=== PATIENT | male | born 1965 ===

== ENCOUNTER 2018-11-05 06:20 | Inpatient (IN) | payer OTHER ==
[~2018-11-05 06:20] MED LIST: VANCOMYCIN 1,000 MG VIAL (RESTRICTED TO ID ONLY) IVPB ONE
[2018-11-05] MEDS ORDERED: BUPIVACAINE LIPOSOME/PF (EXPAREL) 266 MG/20 ML VIAL ONE ×2 (07:17→07:38)
[2018-11-05] MEDS ORDERED: HEPARIN NA (PORCINE) 5,000 UNITS/ML 1ML VIAL ONE (07:17)
[2018-11-05] MEDS ORDERED: THROMBIN (BOVINE) 5,000 UNIT VIAL TP ONE ×2 (07:17→09:50)
[2018-11-05] MEDS ORDERED: fentaNYL CITRATE 250 MCG/5 ML VIAL ONE ×2 (07:36→11:22)
[2018-11-05] MEDS ORDERED: EPHEDRINE SULFATE/0.9% NACL/PF 50 MG/10 ML SYRINGE NR ONE ×2 (07:36→13:37)
[2018-11-05] MEDS ORDERED: ROCURONIUM BROMIDE 50 MG/5 ML SYRINGE ONE ×2 (07:37→13:37)
[2018-11-05] MEDS ORDERED: MIDAZOLAM HCL 2 MG/2 ML SINGLE DOSE VIAL ONE ×3 (07:37→07:40)
[2018-11-05] MEDS ORDERED: PROPOFOL 20 ML ONE ×24 (07:37→13:53)
[2018-11-05] MEDS ORDERED: BACITRACIN 15 GM TUBE TOPICAL OINTMENT ONE (07:38)
[2018-11-05] MEDS ORDERED: ceFAZolin SODIUM 1 GM VIAL IVPB ONE ×4 (08:31→17:59)
[2018-11-05] MEDS ORDERED: VANCOMYCIN 1,000 MG VIAL (RESTRICTED TO ID ONLY) IVPB ONE (08:35)
[2018-11-05] MEDS ORDERED: oxyCODONE HCL 5 MG TABLET PO PRN ×2 (09:20)
[2018-11-05] MEDS ORDERED: ONDANSETRON 4 MG/2 ML VIAL IVPUSH PRN ×2 (09:20→15:00)
[2018-11-05] MEDS ORDERED: LACTATED RINGERS SOLUTION 1,000 ML IV SCH (09:30)
[2018-11-05] MEDS ORDERED: HYDROmorphone *PCA* 10MG/50ML DISP.SYRIN PCA SCH ×2 (09:30→16:48)
[2018-11-05] MEDS ORDERED: TRANEXAMIC ACID 1000 MG/10 ML VIAL ONE ×2 (09:31→13:29)
[2018-11-05] MEDS ORDERED: NEOSTIGMINE METHYLSULFATE 0.5 MG/1 ML - 10 ML MDV ONE (09:46)
[2018-11-05] MEDS ORDERED: oxyCODONE HCL 10 MG SUSTAINED ACTING TABLET PO SCH (10:00)
[2018-11-05] MEDS ORDERED: ACETAMINOPHEN 1000 MG/100 ML VIAL (NON FORMULARY) IVPB ONE ×3 (12:00→20:26)
--- NOTE | 2018-11-05 13:13 | PN ---
Progress Note (short form) - Note Progress Note: 52M s/p removal of hardware L4-L5, inspection of fusion mass, L3-S1 laminectomies, L3-L4 & L4-L5 PLIF, L3-S1 posterior instrumented spinal fusion POD #0. -Admit to ICU post-op. -Pain control: NO NSAID's; patient received pre-op TLIP block w/Exparel; OK to use MANAGER RENTAL if needed; transition to oral analgesia post-op. -DVT PPx: -Mechanical only: MAX's, SCD's. -Chemical: None. -Incentive spirometry q15 min. -NPO until flatus. -Parsons care; d/c when ambulating. -Post-op Ancef x 3 doses. -PT/OT/Rehab, OOB. -WBAT B/L LE. -No bending, lifting (>5 lbs), or twisting for 9-12 months. -Care per ICU & medical hospitalist teams. -Discharge planning: Miles eason; f/u 7-10 days after rehab discharge at [facility] office; call for appointment; . -Will follow. Alfredo Palma MD (Orthopaedic Surgery).
--- NOTE | 2018-11-05 13:20 | OP ---
Operative Note - Note: Operative Date: 11/05/18 Pre-Operative Diagnosis: 1. Adjecent level disease lumbar spine. 2. 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 3. L3-L4, L4-L5, L5-S1 lumbar stenosis with neurogenic claudication. 4. Multi-level axial instability lumbar spine. SEVERITY OF ILLNESS: 4. Operation: 1. Removal of hardware L4-L5. 2. Inspection of fusion mass. 3. L3 ( partial), L4, L5, S1 laminectomies. 4. L3-L4, L4-L5, L5-S1 posterior lumbar interbody fusion with posterolateral arthrodesis. 5. L3-S1 posterior instrumentation. 6. Bone autograft. 7. Bone allograft. 8. Bone marrow aspirate concentrate autograft. 9. Complex wound closure (25cm). 10. Durotomy repair Findings: 1. Severe epidural fibrosis with significant adherence of L4 and L5 exiting nerve roots 2. Broken screws bilateral L5 3. Calcified L4-L5 disc Implants: Cages: RTI Fortilink Tetrafuse. L3-L4 - 11mm (right approach). L4- L5 - 12mm (left approach). Screws: Precision Spine. L3 - 6.5x45mm x 2. L4 - 6.5x45mm x 1, 7.5x40mm x 1. S1 - 7.5x35mm x 1, [id number] x 1. 1 x Cross-Link Post-Operative Diagnosis: Same as Pre-op Surgeon: Alfredo Palma Warehouse Distribution Manager: Abdulaziz Palma Anesthesiologist/GRAPHIC ART DESIGNER: Juni Ferguson Anesthesia: General, Local (TLIP) Specimens Removed: L3-L4, L4-L5 discs. L4-L5 hardware Estimated Blood Loss (mls): 1,750 Drains & Tubes with Location: 1 x superficial HemoVac Blood Volume Replaced (mls): 875 (Cell Saver) Fluid Volume Replaced (mls): 3,000 (Crystalloid) Operative Report Dictated: Yes
[2018-11-05] MEDS ORDERED: DEXAMETHASONE SOD PHOSPHATE 4 MG/1 ML VIAL ONE (13:29)
[2018-11-05] MEDS ORDERED: ONDANSETRON 4 MG/2 ML VIAL ONE (13:29)
[2018-11-05] MEDS ORDERED: LIDOCAINE HCL 2% JELLY (5 ML/TUBE) ONE (13:29)
[2018-11-05] MEDS ORDERED: LIDOCAINE HCL/PF 2% SDV 5ML VIAL ONE (13:29)
[2018-11-05] MEDS ORDERED: SUCCINYLCHOLINE CHLORIDE 200 MG/10 ML SYRINGE ONE (13:50)
[2018-11-05] MEDS ORDERED: HYDROmorphone *PCA* 10MG/50ML DISP.SYRIN ONE (15:52)
[2018-11-05] MEDS ORDERED: HYDROmorphone *PCA* 10MG/50ML DISP.SYRIN PCA ONE (16:15)
[2018-11-05] MEDS ORDERED: ACETAMINOPHEN INJECTION 200 ML IVPB ONE (16:59)
[2018-11-05] MEDS ORDERED: ceFAZolin SODIUM 1 GM VIAL ONE ×2 (17:24→17:34)
--- NOTE | 2018-11-05 18:19 | HP ---
CHIEF COMPLAINT: Sharp pain radiating to the Legs PCP: None on file HISTORY OF PRESENT ILLNESS: 52 yo male with no PMH s/p removal of hardware L4-L5, inspection of fusion mass , L3-S1 laminectomies, L3-L4& L4-L5 PLIF, L3-S1 posterior instrumented spinal fusion because of L4-L5 PLIF and sharp pain grading 6/10 radiating down the legs. Pt was unable to provide further history at the time Recent Travel: none PAST MEDICAL HISTORY: None PAST SURGICAL HISTORY: None Social History: Smoking:denies Alcohol: denies Drugs: denies Family History: None Allergies No Known Drug Allergies Allergy (Verified 11/05/18 07:00) HOME MEDICATIONS: Home Medications Medication Instructions Recorded Ibuprofen [Motrin -] 800 mg PO PRN PRN 11/02/18 Multivitamin [One-Daily 1 each PO DAILY 11/02/18 Multi-Vitamin] Oxymorphone HCl [Oxymorphone HCl 40 mg PO TID 11/02/18 ER] Benazepril HCl 5 mg PO DAILY 11/05/18 REVIEW OF SYSTEMS CONSTITUTIONAL: Absent: fever, chills, diaphoresis, generalized weakness, malaise, loss of appetite, weight change HEENT: Absent: rhinorrhea, nasal congestion, throat pain, throat swelling, difficulty swallowing, mouth swelling, ear pain, eye pain, visual changes CARDIOVASCULAR: Absent: chest pain, syncope, palpitations, irregular heart rate, lightheadedness , peripheral edema RESPIRATORY: Absent: cough, shortness of breath, dyspnea with exertion, orthopnea, wheezing, stridor, hemoptysis GASTROINTESTINAL: Absent: abdominal pain, abdominal distension, nausea, vomiting, diarrhea, constipation, melena, hematochezia GENITOURINARY: Absent: dysuria, frequency, urgency, hesitancy, hematuria, flank pain, genital pain MUSCULOSKELETAL: Absent: myalgia, arthralgia, joint swelling, back pain, neck pain SKIN: Absent: rash, itching, pallor HEMATOLOGIC/IMMUNOLOGIC: Absent: easy bleeding, easy bruising, lymphadenopathy, frequent infections ENDOCRINE: Absent: unexplained weight gain, unexplained weight loss, heat intolerance, cold intolerance NEUROLOGIC: Absent: headache, focal weakness or paresthesias, dizziness, unsteady gait, seizure, mental status changes, bladder or bowel incontinence PSYCHIATRIC: Absent: anxiety, depression, suicidal or homicidal ideation, hallucinations. PHYSICAL EXAMINATION Vital Signs - 24 hr 11/05/18 11/05/18 11/05/18 06:55 06:56 15:16 Temperature 98.0 F 99.7 F H Pulse Rate 71 110 H Respiratory 20 10 Rate Blood Pressure 141/96 126/67 O2 Sat by Pulse 97 96 Oximetry (%) 11/05/18 11/05/18 11/05/18 15:30 15:45 16:00 Temperature Pulse Rate 105 H 95 H 94 H Respiratory 21 H 19 18 Rate Blood Pressure 134/71 127/83 116/72 O2 Sat by Pulse 99 99 99 Oximetry (%) 11/05/18 11/05/18 11/05/18 16:15 16:30 16:45 Temperature Pulse Rate 105 H 93 H 98 H Respiratory 18 18 21 H Rate Blood Pressure 119/83 110/61 137/77 O2 Sat by Pulse 98 99 98 Oximetry (%) 11/05/18 11/05/18 11/05/18 17:00 17:15 17:30 Temperature Pulse Rate 95 H 82 85 Respiratory 20 12 15 Rate Blood Pressure 133/89 125/98 130/95 O2 Sat by Pulse 86 L 95 95 Oximetry (%) 11/05/18 17:45 Temperature Pulse Rate 98 H Respiratory 15 Rate Blood Pressure 143/88 O2 Sat by Pulse 95 Oximetry (%) GENERAL: patient is asleep postoperatively. HEAD: Normal with no signs of trauma. LUNGS: Breath sounds equal, clear to auscultation bilaterally. No wheezes, and no crackles. No accessory muscle use. HEART: Regular rate and rhythm, normal S1 and S2 without murmur, rub or gallop. ABDOMEN: Soft, nontender, not distended, normoactive bowel sounds, no guarding, no rebound, no masses. No hepatomegaly or splenomegaly. MUSCULOSKELETAL: not examined s/p spinal surgery UPPER EXTREMITIES: 2+ pulses, warm, well-perfused. No cyanosis. No clubbing. No peripheral edema. LOWER EXTREMITIES: 2+ pulses, warm, well-perfused. No calf tenderness. No peripheral edema. NEUROLOGICAL: Normal speech. sensation intact in all extremities. Laboratory Results - last 24 hr 11/05/18 11/05/18 08:40 08:43 Blood Type O POSITIVE O POSITIVE Antibody Screen Negative ASSESSMENT/PLAN: 52 yo male with no PMH s/p removal of hardware L4-L5, inspection of fusion mass , L3-S1 laminectomies, L3-L4& L4-L5 PLIF, L3-S1 posterior instrumented spinal fusion because of L4-L5 PLIF and sharp pain grading 6/10 radiating down the legs Pain control NO NSAIDS FILM LIBRARIAN if needed, then oral analgesia post op DVT Mechanical only TEDs, SCDs NO ANTICOAGULATIONS ICS q15 min NPO until flatus Monitor Problem List - Problem (1) Radiculopathy due to disorder of intervertebral disc of lumbar spine Code(s): M51.16 - INTERVERTEBRAL DISC DISORDERS W RADICULOPATHY, LUMBAR REGION Visit type - Emergency Visit Emergency Visit: No - New Patient This patient is new to me today: Yes Date on this admission: 11/05/18 - Critical Care Critical Care patient: Yes Total Critical Care Time (in minutes): 35 Critical Care Statement: The care of this patient involved high complexity decision making to prevent further life threatening deterioration of the patient 's condition and/or to evaluate & treat vital organ system(s) failure or risk of failure. ATTENDING PHYSICIAN STATEMENT I saw and evaluated the patient. I reviewed the resident's note and discussed the case with the resident. I agree with the resident's findings and plan as documented. SUBJECTIVE: OBJECTIVE: ASSESSMENT AND PLAN:
--- NOTE | 2018-11-05 19:08 | PN ---
Teaching Attending Note Name of Resident: Meghan Shelley ATTENDING PHYSICIAN STATEMENT I saw and evaluated the patient. I reviewed the resident's note and discussed the case with the resident. I agree with the resident's findings and plan as documented. SUBJECTIVE: cc: s/p spinal sx. HPI: 52 y/o man with h/o, HTN, lower back pain s/p L4-S1 spinal fusion , and continued back pain who presented for spinal sx. he is now POD 0 , still in PACU and under the effect of sedation he denies pain, denies SOB, falls asleep and does not participate much in conversation. Preop labs and history reviewed. MEd list also reviewed. OBJECTIVE: NAD, lethargic, arousable, answers briefly and then falls asleep. HEENT: dry MM. round equal pupils, bruise on L tip of the tongue. subconjunctival edema. no facial droop. round pupils, reactive to light. CV: RRR, no MRG Lungs: CATB anteriorly Abd: soft , No BS, NT, obese, ND. Ext : No edema or erythema. DP 2+ . no fungal infection among toes. Neuro: limited. round equal pupils. tongue at mid line. no facial droop. nl sensation in upper and lower extremities. can wiggle toes and lifts arms. reflexes 1+ knee jerk and biceps b/ l ASSESSMENT AND PLAN: 52 y/o man with h/o lower back pain s/p L4-s1 spinal fusion , and continued back pain who presented for spinal sx 1- POD 0 after L spine procedure. 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 - Labs in am 2- h/o HTN: - lisinopril in place of benazapril stephanie here 3- DVT px: SCDs for now
[2018-11-05] MEDS: ACETAMINOPHEN 1000 MG/100 ML VIAL (NON FORMULARY) IVPB SCH ×2 (19:23→23:25)
[2018-11-05] MEDS: LACTATED RINGERS SOLUTION 1,000 ML IV SCH (19:23)
[2018-11-05] MEDS: ceFAZolin 2 GRAM PREMIX BAG IVPB SCH ×2 (19:28→23:56)
[2018-11-05] MEDS: HYDROmorphone *PCA* 10MG/50ML DISP.SYRIN PCA SCH (19:28)
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
[2018-11-05] MEDS: MUPIROCIN 2% TOPICAL OINTMENT FOR DECOLONIZATION NS SCH (22:42)
[2018-11-05] MEDS: CHLORHEXIDINE GLUCONATE 4% CLEANSER FOR DECOLONIZATION TP SCH (22:42)
[2018-11-06] MEDS: ceFAZolin 2 GRAM PREMIX BAG IVPB SCH (05:41)
[2018-11-06] MEDS: HYDROmorphone *PCA* 10MG/50ML DISP.SYRIN PCA SCH ×2 (05:44→15:10)
[2018-11-06] MEDS: LACTATED RINGERS SOLUTION 1,000 ML IV SCH ×2 (05:46→10:30)
[2018-11-06 06:35] LABS: HEMATOCRIT 37.9 % (35.4-49); HEMOGLOBIN 12.7 GM/dL (11.7-16.9); MCHC 33.4 g/dl (32.0-35.9); MEAN CELL VOLUME 92.9 fl (80-96); MEAN PLT VOLUME 6.7 fl (7.5-11.1); PLATELET COUNT 193 K/MM3 (134-434); RBC 4.08 M/mm3 (4.00-5.60); RDW 14.8 % (11.9-15.9); WHITE BLOOD COUNT 16.4 K/mm3 (4.0-10.0)
[2018-11-06] MEDS: ACETAMINOPHEN 1000 MG/100 ML VIAL (NON FORMULARY) IVPB SCH (06:36)
[2018-11-06 06:50] LABS: BLOOD UREA NITROGEN 9.9 mg/dL (7-18); CALCIUM 7.1 mg/dL (8.5-10.1); CREATININE 2.2 mg/dL (0.55-1.3); MAGNESIUM 1.2 mg/dL (1.8-2.4); PHOSPHOROUS 3.1 mg/dL (2.5-4.9); POTASSIUM 3.8 mmol/L (3.5-5.1)
[2018-11-06] MEDS ORDERED: MAGNESIUM SULF 50% (8.12 MEQ/2 ML-1 GM VIAL) IVPB ONE (08:15)
[2018-11-06] MEDS ORDERED: LACTATED RINGERS SOLUTION 1000 ML INFUS.BAG IV ONE (08:33)
[2018-11-06] MEDS ORDERED: LACTATED RINGERS SOLUTION 1,000 ML IV ONE (08:45)
[2018-11-06] MEDS ORDERED: LIDOCAINE HCL 2% JELLY (30 ML/TUBE) TP ONE (09:00)
--- NOTE | 2018-11-06 09:40 | OP ---
Date of Operation: 11/05/2018 Pre-Operative Diagnosis: 1. L3-L4, L4-L5, L5-S1 lumbar spondylotic radiculopathy. 2. L3-S1 spinal stenosis with neurogenic claudication. 3. Prior L4-L5 posterior decompression and instrumented lumbar fusion. 4. Adjacent level disease lumbar spine. 5. Chronic low back pain. 6. Segmental axial instability lumbar spine. Post-Operative Diagnosis: 1. L3-L4, L4-L5, L5-S1 lumbar spondylotic radiculopathy. 2. L3-S1 spinal stenosis with neurogenic claudication. 3. Prior L4-L5 posterior decompression and instrumented lumbar fusion. 4. Adjacent level disease lumbar spine. 5. Chronic low back pain. 6. Segmental axial instability lumbar spine. 7. Broken hardware lumbar spine. Procedure Performed: 1. Removal of prior L4-L5 instrumentation. (94349) 2. Inspection of fusion mass. (81714) 3. L3, L4, L5, S1 laminectomies and facetectomies. (50942-50, 32252-25 x 3) 4. L3-L4, L4-L5 posterolateral arthrodesis & posterior lumbar interbody fusion (PLIF). (60781, 59457) 5. L3-L4, L4-L5 insertion biomechanical device. (55400 x 2) 6. L3, L4, S1 posterior instrumentation. (68094-47-70) 7. Morselized bone autograft. (02842) 8. Morselized bone allograft. (19395) 9. Bone marrow aspiration for bone grafting. (75089) 10. Complex wound closure, 4 layers, 25cm. (85880 x 4) 11. Durotomy repair Surgeon: Alfredo Palma M.D. Occupational Therapy Department Chair: Abdulaziz Palma M.D. Anesthesiologist: Juni Ferguson M.D. Anesthesia: General, Local (TLIP block). Position: Prone. Incision: Midline. Specimens Removed: L4-L5 hardware, L3-L4 & L4-L5 discs. Drains: None. Estimated Blood Loss: 1,750cc. Intravenous Fluid: 3,000cc crystalloid. Transfusions: 875cc Cell Saver. Complications: None. Bacteriology: None. Closure: No. 1 Vicryl, 2-0 Biosyn absorbable sutures. Indications: The patient was indicated for the above listed surgical procedure due to progressive neurological and functional decline that limits his mobility and furthermore his ability to attend to his activities of daily living. The patient was identified in the holding area by his armband. A long discussion was held with the patient regarding the risks, benefits, and alternatives of the above-listed procedure. The risks include, but are not limited to: Pain, bleeding, infection, damage to surrounding structures (including nerves, blood vessels, skin, ligaments, tendons, and bone), wound complications, failure of hardware/implants/reduction , need for further surgery, blood clots, myocardial infarction, cerebrovascular injury, pulmonary embolism, anesthesia complications, limp, numbness, paresthesias, loss of function, and . Benefits may include reduction of: back pain, radiculopathy, neurogenic claudication, and improved overall mobility and function. Alternatives include no surgery. All questions were answered. The patient understood and agreed to the procedure. Informed consent was obtained, witnessed, and verified. The patient's lumbar spine was marked. The patient was then assessed by the anesthesia team who proceeded to administer a bilateral imaging-guided TLIP blocks to facilitate post-operative pain management. The patient was then taken to the operating room after being seen by the anesthesia and nursing staff. Procedure: The patient was brought into the operating room, where anesthesia was then administered. This included 2g IV Ancef, 1g IV Vancomycin, and 1g IV tranexamic acid (TXA). A time-out was done led by , the attending surgeon. An indwelling Parsons catheter was successfully inserted by the nursing team. The intra-operative neuromonitoring team provided prepositioning baseline motor and sensory readings. The patient was then safely placed in a prone position with all bony prominences well-padded on a [facility] spine table with strict attention paid to maintenance of sagittal vertical alignment. Retroversion of the pelvis was avoided by ensuring that the hips were extended. This also ensured appropriate lumbar lordosis. The arms were placed on well-padded arm boards and maintained with standard forward flexion, abduction, and external rotation of the shoulders , and flexion of the elbows. Special attention was given to the safe positioning of the cervical spine. The patients eyes, and belly were all free. The table was placed in 6 degrees of reverse Trendelenburg position to avoid ophthalmic vein congestion. Post-positional motor and sensory readings confirmed no change. A C-arm fluoroscopy unit was positioned perpendicularly to the table and maintained at the level of the upper thoracic spine, except when needed. The skin was prepped in standard, sterile fashion using betadine prep & scrub, wiped off with alcohol, and DuraPrep applied. Standard window draping was utilized, and this included draping of the C-arm. Appropriate pre-operative imaging, including lumbar spine x-rays and MRI, were available throughout the case for intraoperative evaluation. At this time, a review of the patients plain film lumbar spine x-rays led to the determination the previous surgery was performed at the L4-L5 levels. This was determined due to the presence of 4 lumbar vertebrae and sacralization of the 5th lumbar vertebra. A time-out was repeated, and the case began. The previous, curved midline skin incision was utilized and extended proximally from the tip of the spinous process of L1 to the tip of the spinous process of S2. Using electrocautery, the dissection was carried down through subcutaneous fat and then through the midline of the lumbodorsal fascia down to the tips of the spinous processes. A subperiosteal dissection was performed using a combination of unipolar electrocautery and Arenas elevation. This was carried down the spinous process, over the laminae, across the facet joints, and out over the tips of the transverse processes from L3 to the ala of the sacrum. In this dissection, the capsules of the L2-L3 joints were preserved bilaterally. The previously placed L4-L5 hardware was exposed bilaterally. The L3-L4, L4-L5, and L5-S1 joint capsules were pathologically hypertrophic. They were ablated using electrocautery and resected with rongeurs. The posterolateral dissection was performed with attention to hemostasis by utilizing both unipolar as well as bipolar electrocautery. Extensive scar tissue and fibrosis was encountered throughout the dissection, as evidence of previous lumbar spinal surgery. The posterolateral space was packed with Ray-Abner sponges. A rongeur was used to grasp the L5 spinous process and demonstrate the mobility of the L5-S1 segment. This confirmed the location of the last mobile segment. The rongeur was used to grasp the L4 spinous process and demonstrate the mobility of the L4-L5 segment, thus completing the inspection of the L4-L5 fusion mass. The L4-L5 hardware was then removed and both of the L5 screws were noted to be broken, thus accounting for the mobility across the L4-L5 segment. The screw tulips were removed with the broken pedicle screws left in situ. Bilateral laminectomies were performed at L3, L4, L5, and S1 utilizing Kerrison rongeur upcuts combined with Leksell rongeurs. All harvested bone was saved, freed of fibrous tissue, and morselized with a bone mill. Next, an osteotome was utilized to bilaterally longitudinally split the pars interarticularis and the inferior facets of L3, L4, and L5. The osteotomized bone was imploded towards the thecal sac, which was protected with cottonoid patties, and removed with either a Leksell rongeur or a Kerrison ronguer. Upon removal of all osteotomized bone, we gained clear and easy access to the superior facets of L4, L5, and S1, where tight recess stenosis was appreciated. The exiting L3, L4, L5, & S1 nerve roots were identified. Extensive epineural fibrosis diffusely from L3-S1, particularly at L4 and L5 bilaterally. Stenosis, fibrotic scar tissue was meticulously dissected off the neural elements, and a 1.5cm incidental durotomy of the thecal sac occurred due to the extent of adhesion formation. The durotomy was successfully repaired using 4-0 Nurolon suture. A watertight closure was achieved, as confirmed by multiple anesthesiologist- controlled Valsalva maneuvers held at 40mmHg. This was confirmed at several future time points in the case. The medial edge of the superior facet was resected on each side using Kerrison rongeurs. This further freed the theca and the exiting nerve roots at each level. Each foramen from L3-S1 was inspected utilizing an angled ball-tipped probe and proved to be generously capacious in accommodating the unobstructed exit of the nerve root at that level. The crowding of the convoluted ligamentum flavum and posterior facet joint capsules contributed to the recess stenosis. These structures were excised using Kerrison upcuts, thus fully completing the decompression. All retractors were relaxed and removed. A Jamshidi needle was delivered into the left posterior ileum through the same surgical incision. Via this, 120 mL of bone marrow was aspirated and spun down to isolate a mix of osteoprogenitor and hematopoietic cells. Retractors were inserted once again. The following was performed at L3-L4: The theca was gently mobilized from right to left using a nerve root retractor. In order to do this, we ensured that each nerve root was completely free in its neural foramen as previously described. With the intervertebral disc clearly visualized, large epidural veins were cauterized using bipolar electrocautery. The disc was approached from the right side and using a #11-blade, an elliptical annulotomy was performed. Willy were passed into the disc at each level. The disc was morselized with rotation of the willy, and then extricated with pituitary rongeurs and saved for lab evaluation. The end plates were freed of all soft tissues using a serrated curette. Milled bone autograft was packed into the interbody space, thus completing an anterior arthrodesis of the intervertebral space. An [id number] RTI Fortilink Tetrafuse spacer, that was packed with autograft bone, was inserted into the prepared intervertebral space. The cage was placed in a Press-Fit type manner where the willy were one size under the actual size of the spacer placed as outlined above. An interference fit of the cage assured as we relied on ligamentotaxis for fixation. No dural problems were encountered, and the dura appeared healthy throughout the procedure following the previous dural repair. At this point, the neuromonitoring revealed no complications. The following was performed at L4-L5: The theca was gently mobilized from left to right using a nerve root retractor. In order to do this, we ensured that each nerve root was completely free in its neural foramen as previously described. With the intervertebral disc clearly visualized, large epidural veins were cauterized using bipolar electrocautery. The disc was approached from the left side and using a #11-blade, an elliptical annulotomy was performed. Willy were passed into the disc at each level. The disc was morselized with rotation of the willy, and then extricated with pituitary rongeurs and saved for lab evaluation. The end plates were freed of all soft tissues using a serrated curette. Milled bone autograft was packed into the interbody space, thus completing an anterior arthrodesis of the intervertebral space. An [id number] RTI Fortilink Tetrafuse spacer, that was packed with autograft bone, was inserted into the prepared intervertebral space. The cage was placed in a Press-Fit type manner where the willy were one size under the actual size of the spacer placed as outlined above. An interference fit of the cage assured as we relied on ligamentotaxis for fixation. No dural problems were encountered, and the dura appeared healthy throughout the procedure following the previous dural repair. At this point, the neuromonitoring revealed no complications. Pedicle screws were then seated bilaterally at L3, L4, & S1 utilizing standard anatomical guidelines: IE the intersection of the horizontal axis of the transverse process with the longitudinal axis of the inferior facet at each level. Utilizing lateral fluoroscopic x-ray, a 4.5mm pneumatic drill was passed via the pedicle at each level, into the corresponding vertebral body. Imaging allowed us to ensure that the drill screw was delivered along the undersurface of each endplate. This ensured fixation into the best quality bone. Each pedicle was palpated with a ball-tipped feeler. No breech of anterior, medial, lateral, caudal or cranial bone bed was noted. Precision Spine Reform screws were inserted bilaterally at L3, L4, & S1. Each screw was reevaluated with lateral and anteroposterior fluoroscopy as well as intraoperative neuromonitoring. No preparation or instrumentation occurred at L5 due to the presence of broken screws. All intraoperative neuromonitoring readings were at or above the safe passage of 10 mA. The L3, L4, L5 and S1 pedicles were inspected and palpated using an angled ball- tipped probe. There was no evidence of screw breach involving any of the pedicles. Next, two rods were inserted and fixed into the screw heads with the appropriate screw caps. A torque-limiting device completed the fixation of each cap into each screw head. A single crosslink was utilized. Next, the muscle was gently retracted off the intertransverse plane. All packing sponges were removed. Milled autologous bone with allograft expansion was combined with the bone marrow aspirate concentrate and used for the posterolateral arthrodesis along the intertransverse plane from L3 to S1. Prior to this bone grafting, the recipient bone bed was denuded of all soft tissue. No burring was necessary due to healthy bleeding of each bony surface, including the posterior surface of the transverse processes and the lateral surface of the pars interarticularis at each level. Throughout the case, the wound was irrigated with normal saline solution to keep the exposed soft tissues hydrated. The retractors were released every 15 to 20 minutes to enable adequate blood flow to the paraspinal muscles. These muscles were gently massaged upon release of the retractors to further facilitate blood flow. At the end of the procedure, fragmented and compromised paraspinal muscle was superficially debrided. The anesthesiologist then performed a final Valsalva maneuver up to 40mmHg. There was no evidence of dural defect, cerebrospinal fluid leak, or uncontrollable bleeding. The durotomy repair was augmented with SurgiCel and DuraSeal. Closure: The lumbodorsal fascia overlying the paraspinal musculature was closed in the midline using #1 vicryl sutures in simple interrupted fashion. A 1/8 HemoVac drain was placed in the plane superficial to the fascia, exiting adjacent to the proximal apex of the incision. The wound was repeatedly thoroughly irrigated with normal saline solution. The subcutaneous tissues were closed using #1 Vicryl sutures. The skin was closed using a running 2-0 Biosyn absorbable suture. This completed a complex, 4-layered wound closure of approximately 25cm. The skin was then painted with benzoin and Steri-Strips were applied perpendicular to the incision. A Primapore adhesive Telfa island dressing was applied over the Steri-Strips and a sterile, compressive dressing was applied using 4x4 gauze pads. The skin was painted with DuraPrep. The wound was then sealed with adhesive Ioban. Final AP & lateral fluoroscopic analysis revealed L3-L4 and L4-L5 L5-S1 PLIF cages and L3-S1 instrumentation that appeared intact & place. The exception being the broken L5 pedicle screws. The L3-L4 and L4-L5 disc heights were reconstituted with visibly patent neuroforaminae. There was no fluoroscopic evidence of retained sponges or needles. The sponge and needle counts were correct at the end of the case and I, the attending surgeon, was present and scrubbed throughout the case. The patient was transferred to a hospital bed. All neural monitoring leads were removed. The patient was then transferred to the recovery room in stable condition, as per the anesthesia team, having tolerated the procedure well. Overall comment: Operation went extremely well with no concerning complications. All appropriate goals were achieved in the execution of this operative event. MD BEVERLY Cisse/[id number] MTDD
[2018-11-06] MEDS ORDERED: LISINOPRIL 5 MG TABLET (FP) PO SCH (10:00)
[2018-11-06] MEDS ORDERED: HYDROmorphone *PCA* 10MG/50ML DISP.SYRIN PCA SCH (10:03)
[2018-11-06] MEDS ORDERED: DEXAMETHASONE SOD PHOSPHATE 4 MG/1 ML VIAL IVPUSH SCH ×2 (10:30→15:00)
[2018-11-06] MEDS: MUPIROCIN 2% TOPICAL OINTMENT FOR DECOLONIZATION NS SCH ×2 (12:13→21:24)
--- NOTE | 2018-11-06 12:50 | PN ---
Teaching Attending Note Name of Resident: Stephanie Camacho ATTENDING PHYSICIAN STATEMENT I saw and evaluated the patient. I reviewed the resident's note and discussed the case with the resident. I agree with the resident's findings and plan as documented. SUBJECTIVE: no fever or chilsl. No CARRIZALES . has a lot of lower back pain. feels difficulty in his throat. has no SOB. has weakness in his legs . feels discomfort in his supapubic area. problems with his holliday last night . no flatus OBJECTIVE: NAD,awake, coopertive HEENT: dry MM. round equal pupils, bruise on L tip of the tongue. no facial droop. round pupils, reactive to light. uvula is edematous. and enlarged. + mild stridor CV: RRR, no MRG Lungs: CATB anteriorly and sides Abd: soft , No BS, TTP in supra pubic area , obese, ND. Ext: No edema or erythema. DP 2+. tenderness withpalpation to thighs Neuro of LE: RLE: hip flexion 2/5, ankle dorsiflexionand plantar flexion 4/5. LLE: hip flexion 3/5, knee flexion /extension 4/5 , ankle dosriflesion and plantar flexion 4/5 . Reflexes 1+ knee jerk b/l . nl sensation to light touch on legs and feet ASSESSMENT AND PLAN: 52 y/o man with h/o lower back pain s/p L4-s1 spinal fusion , and continued back pain who presented for spinal sx 1- POD 1 after L spine procedure. - Add continuous infusion to the LEGUILLON DEBEADER. cont 0.2 mg q 6min for boluses - NPO until after flatus - NO NSAIDs - cont holliday - lweukocysotis is probably stress reaction to sx. 2- Stridor and edematous uvula: ? due to intubation VS Angioedema from ACEI. - start decadron 4 mg q 6h. - probably can do prednisone tomorrow - dc lisinopril ( and will not resume his home enalapril at dc ) - monitor air ways 3- BELA: ? due to rhabdo, VS ATN from transient hypotension during sx, or holliday not draining over night. - increase IVF to 200 for now then decrease - cont o make sure holliday drains all the time - US if possible. - follow CPK 4- h/o HTN: - dc lisinopril due to above . will not resume enalapril at dc - start low dos enorvac 5- DVT px: SCDs for now
[2018-11-06 13:00] LABS: EPI CELLS 1.5 /HPF (0-5/HPF); HYALINE CASTS 7 /lpf (0-8); PH,URINE 6.5 (5.0-8.0); URINE APPEARANCE CLOUDY; URINE BILIRUBIN NEGATIVE (NEGATIVE); URINE COLOR ORANGE; URINE GLUCOSE (UA) NEGATIVE (NEGATIVE); URINE KETONE NEGATIVE (NEGATIVE); URINE LEUK ESTERASE TRACE (NEGATIVE); URINE NITRITE NEGATIVE (NEGATIVE); URINE PROTEIN TRACE (NEGATIVE); URINE RBC 448 /hpf (0-4); URINE UROBILINOGEN 0.2 mg/dL (0.2-1.0); URINE WBC 4 /hpf (0-5)
--- NOTE | 2018-11-06 13:10 | PN ---
Teaching Attending Note Name of Resident: Steven Quintanilla ATTENDING PHYSICIAN STATEMENT I saw and evaluated the patient. I reviewed the resident's note and discussed the case with the resident. I agree with the resident's findings and plan as documented. SUBJECTIVE: Patient seen and examined in the ICU. Awake and alert. (+) Sore throat that developed overnight. No CP or SOB. 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 Intake & Output 11/03/18 11/04/18 11/05/18 11/06/18 23:59 23:59 23:59 23:59 Intake Total 4575 1650 Output Total 2750 1900 Balance 1825 -250 Last Vital Signs Temp Pulse Resp BP Pulse Ox 98.2 F 112 H 20 158/100 98 11/06/18 06:00 11/06/18 12:14 11/06/18 12:14 11/06/18 12:14 11/06/18 12:14 Active Medications Chlorhexidine Gluconate (Hibiclens For Decolonization -) 1 applic TP HS PRANAY Last Admin: 11/05/18 22:42 Dose: 1 applic Dexamethasone Sodium Phosphate (Decadron Injection -) 4 mg IVPUSH Q6H-IV PRANAY Last Admin: 11/06/18 12:17 Dose: 4 mg Hydromorphone HCl (Hydromorphone 10 Mg/50 Ml-Ns) 10 mg JEWELLERY DESIGNER JEWELLERY DESIGNER [facility]; Protocol Stop: 11/12/18 17:41 Last Admin: 11/06/18 12:14 Dose: 10 mg Lactated Ringer's (Lactated Ringers Solution) 1,000 mls @ 200 mls/hr IV ASDIR PRANAY Last Admin: 11/06/18 10:30 Dose: 200 mls/hr Mupirocin (Bactroban Ointment (For Decolonization) -) 1 applic NS BID PRANAY Stop: 11/10/18 21:59 Last Admin: 11/06/18 12:13 Dose: 1 applic Ondansetron HCl (Zofran Injection) 4 mg IVPUSH Q6H PRN PRN Reason: NAUSEA AND/OR VOMITING GENERAL: Awake and alert, mildly uncomfortable due to pain HEAD: Normal with no signs of trauma. EYES: EOMI Sclera Clear EARS, NOSE, THROAT: Mallampatti 4, swelling of the uvula LUNGS: Clear HEART: RRR S1S2 ABDOMEN: Obese NDNT UPPER EXTREMITIES: 2+ pulses, warm, well-perfused. No cyanosis. No clubbing. LOWER EXTREMITIES: 2+ pulses, warm, well-perfused. No calf tenderness. No peripheral edema. NEUROLOGICAL: Non-focal SKIN: Warm, dry, normal turgor, no rashes or lesions noted. Laboratory Results - last 24 hr 11/06/18 11/06/18 06:10 06:10 WBC 16.4 H RBC 4.08 Hgb 12.7 Hct 37.9 MCV 92.9 MCH 31.0 MCHC 33.4 RDW 14.8 Plt Count 193 MPV 6.7 L Sodium 135 L Potassium 3.8 Chloride 95 L Carbon Dioxide 23 Anion Gap 16 BUN 9.9 Creatinine 2.2 H Est GFR (CKD-EPI)AfAm 37.95 Est GFR (CKD-EPI)NonAf 32.75 Random Glucose 242 H Calcium 7.1 L Phosphorus 3.1 Magnesium 1.2 L Creatine Kinase 2271 H Creatine Kinase Index 0.7 CK-MB (CK-2) 18.0 H ASSESSMENT/PLAN: POD # 1: removal of hardware L4-L5, inspection of fusion mass, L3-S1 laminectomies, L3-L4 & L4-L5 PLIF, L3-S1 posterior instrumented spinal fusion. HTN Suspected Swelling of the Uvula Clinical history consistent with OSAS Elevated CPK: R/O Rhabdomyolysis Noted patient was started on Decadron O2 as needed Pain control Incentive Spirometry No NSAIDS NPO until Flatus PT OOB to chair Hold KASSANDRA I for now Floor when cleared by surgery Dr Castañeda
[2018-11-06] MEDS ORDERED: HYDROmorphone HCl 2 MG/ML VIAL IVPUSH ONE (13:19)
--- NOTE | 2018-11-06 14:22 | PN ---
Physical Exam: SUBJECTIVE: Patient seen and examined at bedside this AM. Pt in alot of pain, pain meds adjusted by anesthesia addressed in my plan. Pt not passing flatus yet , clinical post-op ileus as expected, will keep NPO until passes flatus. OBJECTIVE: Vital Signs Period Temp Pulse Resp BP Sys/Barrientos Pulse Ox Last 24 Hr 97.9 F-99.7 F 75-112 10-22 110-170/59-115 0-99 GENERAL: The patient is awake, alert, and fully oriented, in alot of pain. HEAD: Normal with no signs of trauma. NECK: pain upon neck ROM, supple. Uvular hypertrophy on exam. LUNGS: Breath sounds equal, clear to auscultation bilaterally, pain upon inspiration, no accessory muscle use. HEART: Regular rate and rhythm, S1, S2 without murmur, rub or gallop. ABDOMEN: Soft, distended, tender abdomen, with hypoactive bowel sounds, increased guarding EXTREMITIES: 2+ pulses, warm, well-perfused, no edema. NEUROLOGICAL: Cranial nerves II through XII grossly intact. Normal speech, gait not observed. PSYCH: Normal mood, normal affect. SKIN: Warm, dry, no rashes or lesions noted Laboratory Results - last 24 hr 11/06/18 11/06/18 11/06/18 06:10 06:10 11:30 WBC 16.4 H RBC 4.08 Hgb 12.7 Hct 37.9 MCV 92.9 MCH 31.0 MCHC 33.4 RDW 14.8 Plt Count 193 MPV 6.7 L Sodium 135 L Potassium 3.8 Chloride 95 L Carbon Dioxide 23 Anion Gap 16 BUN 9.9 Creatinine 2.2 H Est GFR (CKD-EPI)AfAm 37.95 Est GFR (CKD-EPI)NonAf 32.75 Random Glucose 242 H Calcium 7.1 L Phosphorus 3.1 Magnesium 1.2 L Creatine Kinase 2271 H Creatine Kinase Index 0.7 CK-MB (CK-2) 18.0 H Urine Color [place] Urine Appearance Cloudy Urine pH 6.5 Ur Specific [place] 1.025 Urine Protein Trace Urine Glucose (UA) Negative Urine Ketones Negative Urine Blood 3+ H Urine Nitrite Negative Urine Bilirubin Negative Urine Urobilinogen 0.2 Ur Leukocyte Esterase Trace Urine WBC (Auto) 4 Urine RBC (Auto) 448 Urine Casts (Auto) 7 U Epithel Cells (Auto) 1.5 Urine Bacteria (Auto) 1.0 Active Medications Generic Name Dose Route Start Last Admin Trade Name Freq PRN Reason Stop Dose Admin Chlorhexidine Gluconate 1 applic 11/05/18 22:00 11/05/18 22:42 Hibiclens For Decolonization - TP 1 applic HS PRANAY Administration Hydromorphone HCl 10 mg 11/06/18 10:03 11/06/18 12:14 Hydromorphone 10 Mg/50 Ml-Ns [employer] ASSEMBLY 11/12/18 17:41 10 mg [employer]OR [employer]SEMBLY PRANAY Administration Protocol Lactated Ringer's 1,000 mls @ 200 mls/hr 11/06/18 10:06 11/06/18 10:30 Lactated Ringers Solution IV 200 mls/hr ASDIR PRANAY Administration Mupirocin 1 applic 11/05/18 22:00 11/06/18 12:13 Bactroban Ointment (For Decolonization) - NS 11/10/18 21:59 1 applic BID PRANAY Administration Ondansetron HCl 4 mg 11/05/18 15:00 Zofran Injection IVPUSH Q6H PRN NAUSEA AND/OR VOMITING ASSESSMENT/PLAN: Pt is a 52 y/o M with a past medical history of hypertension who presented to [facility] for removal of hardware L4-L5, inspection of fusion mass, L3-S1 laminectomies, L3-L4 & L4-L5 PLIF, L3-S1 posterior instrumented spinal fusion. NEUROLOGY: - Neurologically intact ENT-> uvular hypertrophy post op - likely 2/2 prone intubation vs KASSANDRA induced angiodema - pt was prone for several hrs during procedure and intubated that combination may be cause of this. - 4mg decadron IV was d/c by surgery. MSK:-> S/p removal of hardware L4-L5, inspection of fusion mass, L3-S1 laminectomies, L3-L4 & L4-L5 PLIF, L3-S1 posterior instrumented spinal fusion. -POD #1. -Pain control with INS[employer]OR W[employer] ASSEMBLY solely is not sufficing given pt uses oxymorphone 40 tid at home for pain mgmt, recently cut back to 20mg bid. Pt currently has a 10/10 pain level so will switch to oxycontin 40 BID PO and INS[employer]SEM[employer]Y dilaudid for breakthrough only. -Ofirimev PRN for Fever and/or Pain. -Zofran PRN for Nausea -Incentive Spirometry is essential for pt to improve, will help prevent atelectasis. -Mechanical Prophylaxis with TEDs -NPO until Flatus is passed. -PT consult - no lifting of objects greater than 5 lbs for 9-12 months. Cardiology -> Uncontrolled HTN likely 2/2 Pain -Will hold Lisinopril at this time given poor renal ftn and possible cause of uvular hypertrophy on exam is due to aceI induced angioedema. Renal-> BELA vs BELA on CKD vs rhabdomyolysis - renal sono showing b/l nephrolithiasis and no hydronephrosis - b/l nephrolithiasis will need uro follow up once better clinically. - continue holding KASSANDRA inhibitor - CK elevated - continuing fluid resuscitation 200cc/hr LR. #DVT ppx: SCDs #FEN - LR @ 200cc/hr - Monitor Electrolytes - NPO until Flatus Dispo: We will continue to follow the patient. Thank you for this consultative opportunity. Visit type - Emergency Visit Emergency Visit: Yes ED Registration Date: 11/05/18 Care time: The patient presented to the Emergency Department on the above date and was hospitalized for further evaluation of their emergent condition. - New Patient This patient is new to me today: Yes Date on this admission: 11/06/18 - Critical Care Critical Care patient: Yes Total Critical Care Time (in minutes): 35 Critical Care Statement: The care of this patient involved high complexity decision making to prevent further life threatening deterioration of the patient 's condition and/or to evaluate & treat vital organ system(s) failure or risk of failure. - Discharge Referral Referred to [facility] Med P.C.: No
--- NOTE | 2018-11-06 14:30 | PN ---
Progress Note (short form) - Note Progress Note: Called by ICU to evaluate pt for post operative pain. Pt is POD 1 L3-S1 fusion under GA-ETT with dilaudid GTA. Pt takes oxymorphone 40 tid at home, recently cut back to 20mg bid. Pt currently reports 10/10 pain. Will start oxycontin 40mg po bid. Will continue dilaudid IV GTA breakthrough only. Uvula swelling noted. Pt on decadron. Will follow.
[2018-11-06] MEDS ORDERED: DEXAMETHASONE SOD PHOSPHATE 20 MG/5 ML VIAL IVPB SCH (14:45)
[2018-11-06] MEDS ORDERED: HYDROmorphone *PCA* 10MG/50ML DISP.SYRIN ONE (15:03)
[2018-11-06] MEDS ORDERED: oxyCODONE HCL 40 MG SUSTAINED ACTING TABLET PO ONE (15:16)
--- NOTE | 2018-11-06 15:49 | PN ---
Physical Exam: SUBJECTIVE: Patient seen and examined. Pt was in acute distress due to significant pain. Pt explained that he had to use EMERGENCY COMMUNICATIONS DISPATCHER pump multiple time with minimal relief of pain. OBJECTIVE: Vital Signs Period Temp Pulse Resp BP Sys/Barrientos Pulse Ox Last 24 Hr 97.9 F-98.4 F 75-113 10-22 110-170/59-115 0-100 GENERAL: The patient is awake, alert, and fully oriented, in moderate distress. HEAD: Normal with no signs of trauma. EYES: PERRL, extraocular movements intact, sclera anicteric, conjunctiva clear. No ptosis. ENT: oropharynx clear without exudates but hypertrophic and edematous Uvula 2/ 2 prone intubation, moist mucous membranes. LUNGS: Breath sounds equal, clear to auscultation bilaterally, no wheezes, no crackles, no accessory muscle use. HEART: Regular rate and rhythm, S1, S2 without murmur, rub or gallop. ABDOMEN: Soft, nontender, nondistended, normoactive bowel sounds, no guarding, no rebound, no hepatosplenomegaly, no masses. EXTREMITIES: 2+ pulses, warm, well-perfused, no edema. NEUROLOGICAL: Cranial nerves II through XII grossly intact. Normal speech, gait not observed, motor 5/5 sensation intact in all extremities. Laboratory Results - last 24 hr 11/06/18 11/06/18 11/06/18 06:10 06:10 11:30 WBC 16.4 H RBC 4.08 Hgb 12.7 Hct 37.9 MCV 92.9 MCH 31.0 MCHC 33.4 RDW 14.8 Plt Count 193 MPV 6.7 L Sodium 135 L Potassium 3.8 Chloride 95 L Carbon Dioxide 23 Anion Gap 16 BUN 9.9 Creatinine 2.2 H Est GFR (CKD-EPI)AfAm 37.95 Est GFR (CKD-EPI)NonAf 32.75 Random Glucose 242 H Calcium 7.1 L Phosphorus 3.1 Magnesium 1.2 L Creatine Kinase 2271 H Creatine Kinase Index 0.7 CK-MB (CK-2) 18.0 H Urine Color [place] Urine Appearance Cloudy Urine pH 6.5 Ur Specific [place] 1.025 Urine Protein Trace Urine Glucose (UA) Negative Urine Ketones Negative Urine Blood 3+ H Urine Nitrite Negative Urine Bilirubin Negative Urine Urobilinogen 0.2 Ur Leukocyte Esterase Trace Urine WBC (Auto) 4 Urine RBC (Auto) 448 Urine Casts (Auto) 7 U Epithel Cells (Auto) 1.5 Urine Bacteria (Auto) 1.0 Active Medications Generic Name Dose Route Start Last Admin Trade Name Hermila PRN Reason Stop Dose Admin Chlorhexidine Gluconate 1 applic 11/05/18 22:00 11/05/18 22:42 Hibiclens For Decolonization - TP 1 applic HS PRANAY Administration Hydromorphone HCl 10 mg 11/06/18 14:30 11/06/18 15:10 Hydromorphone 10 Mg/50 Ml-Ns EMERGENCY COMMUNICATIONS DISPATCHER 11/13/18 14:26 10 mg EMERGENCY COMMUNICATIONS DISPATCHER PRANAY Administration Protocol Lactated Ringer's 1,000 mls @ 200 mls/hr 11/06/18 10:06 11/06/18 10:30 Lactated Ringers Solution IV 200 mls/hr ASDIR PRANAY Administration Mupirocin 1 applic 11/05/18 22:00 11/06/18 12:13 Bactroban Ointment (For Decolonization) - NS 11/10/18 21:59 1 applic BID PRANAY Administration Ondansetron HCl 4 mg 11/05/18 15:00 Zofran Injection IVPUSH Q6H PRN NAUSEA AND/OR VOMITING Oxycodone HCl 40 mg 11/06/18 22:00 Oxycontin - PO BID PRANAY ASSESSMENT/PLAN: 52 yo male with no PMH s/p removal of hardware L4-L5, inspection of fusion mass , L3-S1 laminectomies, L3-L4& L4-L5 PLIF, L3-S1 posterior instrumented spinal fusion because of L4-L5 PLIF and sharp pain grading 6/10 radiating down the legs Post OP day 1 Neuro intact patient continues to have significant pain despite EMERGENCY COMMUNICATIONS DISPATCHER pump. Per anesthesia recommendations, pain regimen changed to Oxycodone 40mg BID and Dilaudid 10mg EMERGENCY COMMUNICATIONS DISPATCHER /NO NSAIDS Zofran for nausea PRN Stridor and uvula hypertrophy decadron to prevent airway compromise? BELA 2/2 rhabdomyolysis CPK 2271 CK MB 18 increased fluids for a couple hours than maintained at 200 ml Abdominal pain, suprapubic pt is voiding adequately 950 collected in urine bag, after unclipping he had more urine collected in bag Xylocaine given to reduce catheter discomfort HTN lisinopril 5mg DVT Mechanical only TEDs, SCDs NO ANTICOAGULATIONS ICS q15 min NPO until flatus Problem List - Problems (1) Radiculopathy due to disorder of intervertebral disc of lumbar spine Code(s): M51.16 - INTERVERTEBRAL DISC DISORDERS W RADICULOPATHY, LUMBAR REGION Visit type - Emergency Visit Emergency Visit: No - New Patient This patient is new to me today: No - Critical Care Critical Care patient: Yes Total Critical Care Time (in minutes): 35 Critical Care Statement: The care of this patient involved high complexity decision making to prevent further life threatening deterioration of the patient 's condition and/or to evaluate & treat vital organ system(s) failure or risk of failure. - Discharge Referral Referred to [facility] Med P.C.: No ATTENDING PHYSICIAN STATEMENT I saw and evaluated the patient. I reviewed the resident's note and discussed the case with the resident. I agree with the resident's findings and plan as documented. SUBJECTIVE: OBJECTIVE: ASSESSMENT AND PLAN:
[2018-11-06] MEDS: oxyCODONE HCL 40 MG SUSTAINED ACTING TABLET PO SCH (21:23)
[2018-11-06] MEDS: FAMOTIDINE 20 MG/50 ML IVPB 20 MG/50 ML MG IVPB SCH (21:23)
[2018-11-06] MEDS: CHLORHEXIDINE GLUCONATE 4% CLEANSER FOR DECOLONIZATION TP SCH (21:24)
[2018-11-07] MEDS: LACTATED RINGERS SOLUTION 1,000 ML IV SCH ×2 (00:36→07:49)
[2018-11-07] MEDS: HYDROmorphone *PCA* 10MG/50ML DISP.SYRIN PCA SCH ×2 (05:51→18:13)
[2018-11-07 05:54] LABS: BASO % 0.6 % (0-2.0); EOS % 0.1 % (0-4.5); HEMATOCRIT 45.7 % (35.4-49); HEMOGLOBIN 15.5 GM/dL (11.7-16.9); LYMPH % 9.4 % (8-40); MCH 31.1 pg (25.7-33.7); MEAN CELL VOLUME 91.5 fl (80-96); MEAN PLT VOLUME 6.8 fl (7.5-11.1); MONO % 8.8 % (3.8-10.2); NEUT % 81.1 % (42.8-82.8); PLATELET COUNT 221 K/MM3 (134-434); RBC 4.99 M/mm3 (4.00-5.60); RDW 14.9 % (11.9-15.9); WHITE BLOOD COUNT 21.8 K/mm3 (4.0-10.0)
[2018-11-07 06:24] LABS: BLOOD UREA NITROGEN 12.8 mg/dL (7-18); CREATININE 1.2 mg/dL (0.55-1.3); PHOSPHOROUS 3.3 mg/dL (2.5-4.9)
[2018-11-07 06:25] LABS: POTASSIUM 4.3 mmol/L (3.5-5.1)
[2018-11-07] MEDS ORDERED: OXYMETAZOLINE 0.05% NASAL SOLUTION 15 ML BOTTLE NS PRN (08:00)
[2018-11-07] MEDS ORDERED: LABETALOL HCL 5 MG/1 ML (100MG/20 ML VIAL) IVPUSH PRN (08:42)
[2018-11-07] MEDS: oxyCODONE HCL 40 MG SUSTAINED ACTING TABLET PO SCH ×2 (09:18→21:48)
[2018-11-07] MEDS: FAMOTIDINE 20 MG/50 ML IVPB 20 MG/50 ML MG IVPB SCH ×2 (09:18→21:48)
[2018-11-07] MEDS: MUPIROCIN 2% TOPICAL OINTMENT FOR DECOLONIZATION NS SCH ×2 (09:43→21:49)
--- NOTE | 2018-11-07 09:44 | PN ---
Teaching Attending Note Name of Resident: Meghan Shelley ATTENDING PHYSICIAN STATEMENT I saw and evaluated the patient. I reviewed the resident's note and discussed the case with the resident. I agree with the resident's findings and plan as documented. SUBJECTIVE: c/o having l-spine pain s/p POD #2 , seen in ICU OBJECTIVE: Vital Signs Temperature 99.5 F 11/07/18 06:00 Pulse Rate 96 H 11/07/18 08:00 Respiratory Rate 16 11/07/18 08:00 Blood Pressure 153/104 H 11/07/18 08:00 O2 Sat by Pulse Oximetry (%) 100 11/07/18 08:00 GENERAL: The patient is awake, alert, and fully oriented, in no acute distress. HEAD: Normal with no signs of trauma. EYES: PERRL, extraocular movements intact, sclera anicteric, conjunctiva clear. ENT: Ears normal, oropharynx clear without exudates, moist mucous membranes. NECK: Trachea midline, full range of motion, supple. LUNGS: Breath sounds equal, clear to auscultation bilaterally, no wheezes, no crackles, no accessory muscle use. HEART: Regular rate and rhythm, S1, S2 without murmur, rub or gallop. ABDOMEN: Soft, NT, nondistended, normoactive bowel sounds, no guarding, no rebound, no hepatosplenomegaly, no masses. EXTREMITIES: 2+ pulses, warm, well-perfused, no edema. NEUROLOGICAL: CN 2-12 grossly intact, rest of exam per dr Palma PSYCH: Normal mood, normal affect. SKIN: Warm, dry, normal turgor, no rashes or lesions noted CBCD WBC 21.8 K/mm3 (4.0-10.0) H 11/07/18 05:35 RBC 4.99 M/mm3 (4.00-5.60) 11/07/18 05:35 Hgb 15.5 GM/dL (11.7-16.9) 11/07/18 05:35 Hct 45.7 % (35.4-49) D 11/07/18 05:35 MCV 91.5 fl (80-96) 11/07/18 05:35 MCHC 34.0 g/dl (32.0-35.9) 11/07/18 05:35 RDW 14.9 % (11.9-15.9) 11/07/18 05:35 Plt Count 221 K/MM3 (134-434) 11/07/18 05:35 MPV 6.8 fl (7.5-11.1) L 11/07/18 05:35 CMP Sodium 137 mmol/L (136-145) 11/07/18 05:35 Potassium 4.3 mmol/L (3.5-5.1) 11/07/18 05:35 Chloride 98 mmol/L (98-107) 11/07/18 05:35 Carbon Dioxide 29 mmol/L (21-32) 11/07/18 05:35 Anion Gap 10 MMOL/L (8-16) 11/07/18 05:35 BUN 12.8 mg/dL (7-18) 11/07/18 05:35 Creatinine 1.2 mg/dL (0.55-1.3) 11/07/18 05:35 Random Glucose 106 mg/dL (74-106) 11/07/18 05:35 Calcium 9.0 mg/dL (8.5-10.1) 11/07/18 05:35 CARDIAC ENZYMES Creatine Kinase 2271 U/L (26-308) H 11/06/18 06:10 Current Medications Generic Name Dose Route Start Last Admin Trade Name Zackq PRN Reason Stop Dose Admin Chlorhexidine Gluconate 1 applic 11/05/18 22:00 11/06/18 21:24 Hibiclens For Decolonization - TP 1 applic HS PRANAY Administration Diphenhydramine HCl 25 mg 11/06/18 19:30 11/07/18 07:54 Benadryl Injection - IVPB 11/08/18 01:31 25 mg Q6H PRANAY Administration Hydromorphone HCl 10 mg 11/06/18 14:30 11/07/18 05:51 Hydromorphone 10 Mg/50 Ml-Ns [employer] 11/13/18 14:26 10 mg [employer] PRANAY Administration Protocol Famotidine/Sodium Chloride 20 mg in 50 mls @ 100 mls/hr 11/06/18 22:00 09:18 Pepcid 20 Mg Premixed Ivpb - IVPB 100 mls/hr BID PRANAY Administration Lactated Ringer's 1,000 mls @ 100 mls/hr 11/07/18 07:49 11/07/18 07:49 Lactated Ringers Solution IV 100 mls/hr ASDIR PRANAY Administration Labetalol HCl 10 mg 11/07/18 08:42 Normodyne Injection - IVPUSH Q6H PRN HYPERTENSION Mupirocin 1 applic 11/05/18 22:00 11/07/18 09:43 Bactroban Ointment (For Decolonization) - NS 11/10/18 21:59 1 applic BID PRANAY Administration Ondansetron HCl 4 mg 11/05/18 15:00 Zofran Injection IVPUSH Q6H PRN NAUSEA AND/OR VOMITING Oxycodone HCl 40 mg 11/06/18 22:00 11/07/18 09:18 Oxycontin - PO 40 mg BID PRANAY Administration Oxymetazoline HCl 2 spray 11/07/18 08:00 11/07/18 09:22 Afrin - NS 2 sprays BID PRN Administration NASAL CONGESTION Home Medications Medication Instructions Recorded Ibuprofen [Motrin -] 800 mg PO PRN PRN 11/02/18 Multivitamin [One-Daily 1 each PO DAILY 11/02/18 Multi-Vitamin] Oxymorphone HCl [Oxymorphone HCl 40 mg PO TID 11/02/18 ER] ASSESSMENT AND PLAN: Patient is a 52 y/o man with h/o lower back pain s/p L4-s1 spinal fusion, and continued to have back pain who presented for spinal sx # POD#2 s/p removal of hardware L4-L5, inspection of fusion mass, L3-S1 laminectomies, L3-L4 & L4-L5 PLIF, L3-S1 posterior instrumented spinal fusion, on [employer] pump as per ortho and anesthesia , NPO until after flatus , NO NSAIDs , no aspirin, cont holliday #Acute leukocytosis is probably stress reaction to sx s/p steroid , will monitor # s/p Stridor and edematous uvula: due to intubation , will monitor # BELA: improved 2.2-->1.2 improved s/p IVF # h/o HTN: on Labetolol continue start low dose norvac and anny-I on discharge DVT px: SCDs for now, NO AC as per ortho
--- NOTE | 2018-11-07 10:44 | PN ---
Physical Exam: SUBJECTIVE: Patient seen and examined. Pt felt significantly better today. He endorsed improvement of his pain from 10/10 to 7/10 today. His throat also feel better but just dry sensation. OBJECTIVE: Vital Signs Period Temp Pulse Resp BP Sys/Barrientos Pulse Ox Last 24 Hr 98.4 F-99.5 F 96-119 11-22 135-175/97-115 93-100 GENERAL: The patient is awake, alert, and fully oriented, in no acute distress. HEAD: Normal with no signs of trauma. EYES: PERRL, extraocular movements intact, sclera anicteric, conjunctiva clear. No ptosis. ENT: Ears normal, nares patent, oropharynx clear without exudates, moist mucous membranes. NECK: Trachea midline, full range of motion, supple. LUNGS: Breath sounds equal, clear to auscultation bilaterally, no wheezes, no crackles, no accessory muscle use. HEART: Regular rate and rhythm, S1, S2 without murmur, rub or gallop. ABDOMEN: Soft, nontender, nondistended, normoactive bowel sounds, no guarding, no rebound, no hepatosplenomegaly, no masses. EXTREMITIES: 2+ pulses, warm, well-perfused, no edema. NEUROLOGICAL: Cranial nerves II through XII grossly intact. Normal speech, gait not observed. PSYCH: Normal mood, normal affect. SKIN: Warm, dry, normal turgor, no rashes or lesions noted Laboratory Results - last 24 hr 11/06/18 11/07/18 11/07/18 11:30 05:35 05:35 WBC 21.8 H RBC 4.99 Hgb 15.5 Hct 45.7 D MCV 91.5 MCH 31.1 MCHC 34.0 RDW 14.9 Plt Count 221 MPV 6.8 L Absolute Neuts (auto) 17.6 H Neutrophils % 81.1 Lymphocytes % 9.4 Monocytes % 8.8 Eosinophils % 0.1 Basophils % 0.6 Nucleated RBC % 0 Sodium 137 Potassium 4.3 Chloride 98 Carbon Dioxide 29 Anion Gap 10 BUN 12.8 Creatinine 1.2 Est GFR (CKD-EPI)AfAm 78.98 Est GFR (CKD-EPI)NonAf 68.14 Random Glucose 106 Calcium 9.0 Phosphorus 3.3 Magnesium 2.0 Urine Color [place] Urine Appearance Cloudy Urine pH 6.5 Ur Specific [place] 1.025 Urine Protein Trace Urine Glucose (UA) Negative Urine Ketones Negative Urine Blood 3+ H Urine Nitrite Negative Urine Bilirubin Negative Urine Urobilinogen 0.2 Ur Leukocyte Esterase Trace Urine WBC (Auto) 4 Urine RBC (Auto) 448 Urine Casts (Auto) 7 U Epithel Cells (Auto) 1.5 Urine Bacteria (Auto) 1.0 Active Medications Generic Name Dose Route Start Last Admin Trade Name Freq PRN Reason Stop Dose Admin Chlorhexidine Gluconate 1 applic 11/05/18 22:00 11/06/18 21:24 Hibiclens For Decolonization - TP 1 applic HS PRANAY Administration Diphenhydramine HCl 25 mg 11/06/18 19:30 11/07/18 07:54 Benadryl Injection - IVPB 11/08/18 01:31 25 mg Q6H PRANAY Administration Hydromorphone HCl 10 mg 11/06/18 14:30 11/07/18 05:51 Hydromorphone 10 Mg/50 Ml-Ns [employer] OFFICE MANAGER 11/13/18 14:26 10 mg H[employer] OFFICE MANAGER PRANAY Administration Protocol Famotidine/Sodium Chloride 20 mg in 50 mls @ 100 mls/hr 11/06/18 22:00 09:18 Pepcid 20 Mg Premixed Ivpb - IVPB 100 mls/hr BID PRANAY Administration Lactated Ringer's 1,000 mls @ 100 mls/hr 11/07/18 07:49 11/07/18 07:49 Lactated Ringers Solution IV 100 mls/hr ASDIR PRANAY Administration Labetalol HCl 10 mg 11/07/18 08:42 Normodyne Injection - IVPUSH Q6H PRN HYPERTENSION Mupirocin 1 applic 11/05/18 22:00 11/07/18 09:43 Bactroban Ointment (For Decolonization) - NS 11/10/18 21:59 1 applic BID PRANAY Administration Ondansetron HCl 4 mg 11/05/18 15:00 Zofran Injection IVPUSH Q6H PRN NAUSEA AND/OR VOMITING Oxycodone HCl 40 mg 11/06/18 22:00 11/07/18 09:18 Oxycontin - PO 40 mg BID PRANAY Administration Oxymetazoline HCl 2 spray 11/07/18 08:00 11/07/18 09:22 Afrin - NS 2 sprays BID PRN Administration NASAL CONGESTION ASSESSMENT/PLAN: 52 yo male with no PMH s/p removal of hardware L4-L5, inspection of fusion mass , L3-S1 laminectomies, L3-L4& L4-L5 PLIF, L3-S1 posterior instrumented spinal fusion because of L4-L5 PLIF and sharp pain grading 6/10 radiating down the legs Post OP day 2 Neuro intact patient pain improved to 7/10 from 10/10. Per anesthesia recommendations, pain regimen changed to Oxycodone 40mg BID and Dilaudid 10mg HOTEL FRONT OFFICE MANAGER /NO NSAIDS Zofran for nausea PRN NPO until flatus Throat soarness improved compared to yesterday, Uvula swelling reduced BELA 2/2 rhabdomyolysis CPK 2271 11/06/18 CK MB 18 11/06/18 fluids maintained at 200 ml Creatinine down to 1.2 from 2.2 repeat CK UA was orange and cloudy, 3+ blood, RBC 448, cast 7 with pending Urine EOS WBC increased to 21.8 from 16.4 HTN lisinopril 5mg DVT Mechanical only TEDs, SCDs NO ANTICOAGULATIONS ICS q15 min Problem List - Problems (1) Radiculopathy due to disorder of intervertebral disc of lumbar spine Code(s): M51.16 - INTERVERTEBRAL DISC DISORDERS W RADICULOPATHY, LUMBAR REGION Visit type - Emergency Visit Emergency Visit: No - New Patient This patient is new to me today: No - Critical Care Critical Care patient: Yes Total Critical Care Time (in minutes): 35 Critical Care Statement: The care of this patient involved high complexity decision making to prevent further life threatening deterioration of the patient 's condition and/or to evaluate & treat vital organ system(s) failure or risk of failure. ATTENDING PHYSICIAN STATEMENT I saw and evaluated the patient. I reviewed the resident's note and discussed the case with the resident. I agree with the resident's findings and plan as documented. SUBJECTIVE: OBJECTIVE: ASSESSMENT AND PLAN:
--- NOTE | 2018-11-07 11:12 | PN ---
Teaching Attending Note Name of Resident: Viktoria Narvaez ATTENDING PHYSICIAN STATEMENT I saw and evaluated the patient. I reviewed the resident's note and discussed the case with the resident. I agree with the resident's findings and plan as documented. SUBJECTIVE: Pt seen and examined in the ICU. Pain relatively controlled. Parsons d/c'd. No flatus, no nausea/vomiting. c/o back pain radiating to lower abdomen. OBJECTIVE: Vital Signs Period Temp Pulse Resp BP Sys/Barrientos Pulse Ox Last 24 Hr 98.4 F-99.5 F 96-119 11-22 135-175/97-115 93-100 Intake & Output 11/04/18 11/05/18 11/06/18 11/07/18 23:59 23:59 23:59 23:59 Intake Total 4575 4240 2530 Output Total 2750 5650 1100 Balance 1825 -1410 1430 Weight 101.695 kg Gen: NAD at rest Heart: RRR Lung: decreased breath sounds at the bases Abd: softly distended Ext: no edema CBC, BMP 11/07/18 05:35 11/07/18 05:35 Active Medications Chlorhexidine Gluconate (Hibiclens For Decolonization -) 1 applic TP HS PRANAY Last Admin: 11/06/18 21:24 Dose: 1 applic Diphenhydramine HCl (Benadryl Injection -) 25 mg IVPB Q6H PRANAY Stop: 11/08/18 01:31 Last Admin: 11/07/18 07:54 Dose: 25 mg Hydromorphone HCl (Hydromorphone 10 Mg/50 Ml-Ns) 10 mg HOME CARE GIVER HOME CARE GIVER PRANAY; Protocol Stop: 11/13/18 14:26 Last Admin: 11/07/18 05:51 Dose: 10 mg Famotidine/Sodium Chloride (Pepcid 20 Mg Premixed Ivpb -) 20 mg in 50 mls @ 100 mls/hr IVPB BID PRANAY Last Admin: 11/07/18 09:18 Dose: 100 mls/hr Lactated Ringer's (Lactated Ringers Solution) 1,000 mls @ 100 mls/hr IV ASDIR PRANAY Last Admin: 11/07/18 07:49 Dose: 100 mls/hr Labetalol HCl (Normodyne Injection -) 10 mg IVPUSH Q6H PRN PRN Reason: HYPERTENSION Mupirocin (Bactroban Ointment (For Decolonization) -) 1 applic NS BID [facility] Stop: 11/10/18 21:59 Last Admin: 11/07/18 09:43 Dose: 1 applic Ondansetron HCl (Zofran Injection) 4 mg IVPUSH Q6H PRN PRN Reason: NAUSEA AND/OR VOMITING Oxycodone HCl (Oxycontin -) 40 mg PO BID [facility] Last Admin: 11/07/18 09:18 Dose: 40 mg Oxymetazoline HCl (Afrin -) 2 spray NS BID PRN PRN Reason: NASAL CONGESTION Last Admin: 11/07/18 09:22 Dose: 2 sprays ASSESSMENT AND PLAN: Lumbar Spinal Stenosis with Radiculopathy and Neurogenic Claudication s/p JACQUELYN L4-L5/L3-S1 PLIF/Instrumentation/Durotomy Repair - pain control - incentive spirometry - monitor for return of bowel function - rehab/PT - DVT prophylaxis - disposition per surgery
[2018-11-07 13:30] LABS: ANISOCYTOSIS 1+; MACROCYTOSIS 1+; PLATELET ESTIMATE NORMAL
--- NOTE | 2018-11-07 14:29 | PN ---
Progress Note (short form) - Note Progress Note: 52M s/p removal of hardware L4-L5, inspection of fusion mass, L3-S1 laminectomies, L3-L4 & L4-L5 PLIF, L3-S1 posterior instrumented spinal fusion POD #2. Pain well controlled. No acute events overnight. Patient feels stronger in both legs and more stable when ambulating. Pt. denies overnight history of headaches, chest pain, shortness of breath, nausea, vomiting, chills, & sweats. (+) Voiding; (-) Flatus; (-) BM. Tolerating diet. (+) Walked in hallway with physical therapy team. All labs and vitals reviewed. PE: AAO x 3, NAD. L-Spine: Incision, dressing C/D/I. B/L LE Motor & Sensory: At baseline. A/P: 52M s/p removal of hardware L4-L5, inspection of fusion mass, L3-S1 laminectomies, L3-L4 & L4-L5 PLIF, L3-S1 posterior instrumented spinal fusion POD #2. -NPO until flatus. -Pain control: NO NSAID's. -DVT PPx: -Mechanical only: MAX's, SCD's. -Chemical: None. -Incentive spirometry. -PT/OT/Rehab, OOB. -WBAT B/L LE. -No bending, lifting (>5 lbs), or twisting for 9-12 months. -Care per ICU and medical hospitalist service. -Discharge planning: f/u [facility] [place] office 11/15/2018; call for appointment; . Abdulaziz Palma MD (Orthopaedic Surgery).
--- NOTE | 2018-11-07 15:06 | PN ---
Physical Exam: SUBJECTIVE: Patient seen and examined at bedside. pt states that his pain is improved at a 7/10. pt states that he thinks his voice is sounding better. OBJECTIVE: Vital Signs Period Temp Pulse Resp BP Sys/Barrientos Pulse Ox Last 24 Hr 98.4 F-99.5 F 92-119 11-21 131-175/95-115 93-100 GENERAL: The patient is awake, alert, and fully oriented, in no acute distress. LUNGS: Breath sounds equal, clear to auscultation bilaterally, no wheezes, no crackles, no accessory muscle use. HEART: Regular rate and rhythm, S1, S2 without murmur, rub or gallop. ABDOMEN: Soft, nontender, nondistended, normoactive bowel sounds, no guarding EXTREMITIES: 2+ pulses, warm, well-perfused, no edema. SKIN: Warm, dry, normal turgor, no rashes or lesions noted Laboratory Results - last 24 hr 11/07/18 11/07/18 05:35 05:35 WBC 21.8 H RBC 4.99 Hgb 15.5 Hct 45.7 D MCV 91.5 MCH 31.1 MCHC 34.0 RDW 14.9 Plt Count 221 MPV 6.8 L Absolute Neuts (auto) 17.6 H Neutrophils % 81.1 Neutrophils % (Manual) 81.0 Band Neutrophils % 0.0 Lymphocytes % 9.4 Lymphocytes % (Manual) 4.0 L Monocytes % 8.8 Monocytes % (Manual) 13 H Eosinophils % 0.1 Eosinophils % (Manual) 0.0 Basophils % 0.6 Basophils % (Manual) 0.0 Myelocytes % (Man) 0 Promyelocytes % (Man) 0 Blast Cells % (Manual) 0 Nucleated RBC % 0 Metamyelocytes 0 Hypochromia 0 Platelet Estimate Normal Polychromasia 0 Poikilocytosis 0 Anisocytosis 1+ Microcytosis 0 Macrocytosis 1+ Sodium 137 Potassium 4.3 Chloride 98 Carbon Dioxide 29 Anion Gap 10 BUN 12.8 Creatinine 1.2 Est GFR (CKD-EPI)AfAm 78.98 Est GFR (CKD-EPI)NonAf 68.14 Random Glucose 106 Calcium 9.0 Phosphorus 3.3 Magnesium 2.0 Current Medications Chlorhexidine Gluconate (Hibiclens For Decolonization -) 1 applic TP HS PRANAY Last Admin: 09/10/19 21:24 Dose: 1 applic Hydromorphone HCl (Hydromorphone 10 Mg/50 Ml-Ns) 10 mg DIRECTOR OF CULTURE DIRECTOR OF CULTURE [facility]; Protocol Stop: 11/13/18 14:26 Last Admin: 11/07/18 05:51 Dose: 10 mg Famotidine/Sodium Chloride (Pepcid 20 Mg Premixed Ivpb -) 20 mg in 50 mls @ 100 mls/hr IVPB BID [facility] Last Admin: 11/07/18 09:18 Dose: 100 mls/hr Lactated Ringer's (Lactated Ringers Solution) 1,000 mls @ 100 mls/hr IV ASDIR [facility] Last Admin: 11/07/18 07:49 Dose: 100 mls/hr Labetalol HCl (Normodyne Injection -) 10 mg IVPUSH Q6H PRN PRN Reason: HYPERTENSION Mupirocin (Bactroban Ointment (For Decolonization) -) 1 applic NS BID [facility] Stop: 11/10/18 21:59 Last Admin: 11/07/18 09:43 Dose: 1 applic Ondansetron HCl (Zofran Injection) 4 mg IVPUSH Q6H PRN PRN Reason: NAUSEA AND/OR VOMITING Oxycodone HCl (Oxycontin -) 40 mg PO BID [facility] Last Admin: 11/07/18 09:18 Dose: 40 mg Oxymetazoline HCl (Afrin -) 2 spray NS BID PRN PRN Reason: NASAL CONGESTION Last Admin: 11/07/18 09:22 Dose: 2 sprays ASSESSMENT/PLAN: Pt is a 52 y/o M with a past medical history of hypertension who presented to [facility] for removal of hardware L4-L5, inspection of fusion mass, L3-S1 laminectomies, L3-L4 & L4-L5 PLIF, L3-S1 posterior instrumented spinal fusion. NEUROLOGY: - Neurologically intact ENT: uvular hypertrophy post op - likely 2/2 prone intubation vs KASSANDRA induced angiodema - pt was prone for several hrs during procedure and intubated that combination may be cause of this. - 4mg decadron IV was d/c by surgery. MSK: S/p removal of hardware L4-L5, inspection of fusion mass, L3-S1 laminectomies, L3-L4 & L4-L5 PLIF, L3-S1 posterior instrumented spinal fusion. -POD #2 -c/w oxycontin 40 BID PO and DIRECTOR OF CULTURE dilaudid for breakthrough only. -Ofirimev PRN for Fever and/or Pain. -c/w Incentive Spirometry -c/w PT - no lifting of objects greater than 5 lbs for 9-12 months. Cardiology : HTN likely 2/2 Pain -continue to hold Lisinopril at this time given poor renal ftn and possible cause of uvular hypertrophy on exam is due to aceI induced angioedema. -labetalol 10mg IVP prn for BP control Renal: BELA vs rhabdomyolysis - renal sono showing b/l nephrolithiasis and no hydronephrosis - continue holding KASSANDRA inhibitor - continuing fluid 100cc/hr LR. DVT ppx: SCDs F/E/N - LR @ 100cc/hr - Monitor Electrolytes - NPO until Flatus Dispo: We will continue to follow the patient. Thank you for this consultative opportunity. Visit type - Emergency Visit Emergency Visit: No - New Patient This patient is new to me today: Yes Date on this admission: 11/07/18 - Critical Care Critical Care patient: Yes Total Critical Care Time (in minutes): 36 Critical Care Statement: The care of this patient involved high complexity decision making to prevent further life threatening deterioration of the patient 's condition and/or to evaluate & treat vital organ system(s) failure or risk of failure. - Discharge Referral Referred to [facility] No ATTENDING PHYSICIAN STATEMENT I saw and evaluated the patient. I reviewed the resident's note and discussed the case with the resident. I agree with the resident's findings and plan as documented. SUBJECTIVE: OBJECTIVE: ASSESSMENT AND PLAN:
[2018-11-07] MEDS ORDERED: oxyCODONE HCL 20 MG SUSTAINED ACTING TABLET PO ONE (18:39)
--- NOTE | 2018-11-07 19:36 | PN ---
Progress Note (short form) - Note Progress Note: Anesthesia/pain Called to see pt with oversedation with dilaudid ASSOCIATE DIRECTOR CAREER SERVICES ASSOCIATE DIRECTOR CAREER SERVICES stopped and oxycodon 10mg prn iv ordered for breakthough pain of 40mg PO BID oxycontin Herbert Rossi MD
[2018-11-07] MEDS: oxyCODONE HCL 5 MG TABLET PO PRN ×2 (19:50→23:04)
[2018-11-07] MEDS: CHLORHEXIDINE GLUCONATE 4% CLEANSER FOR DECOLONIZATION TP SCH (23:05)
[2018-11-08] MEDS: ACETAMINOPHEN 1000 MG/100 ML VIAL (NON FORMULARY) IVPB PRN (00:07)
[2018-11-08] MEDS: oxyCODONE HCL 5 MG TABLET PO PRN ×3 (05:45→19:20)
[2018-11-08] MEDS: LACTATED RINGERS SOLUTION 1,000 ML IV SCH ×2 (05:47→08:00)
[2018-11-08 06:01] LABS: BASO % 0.5 % (0-2.0); EOS % 0.8 % (0-4.5); HEMATOCRIT 43.3 % (35.4-49); HEMOGLOBIN 14.6 GM/dL (11.7-16.9); LYMPH % 9.8 % (8-40); MCHC 33.6 g/dl (32.0-35.9); MEAN CELL VOLUME 92.2 fl (80-96); MEAN PLT VOLUME 6.8 fl (7.5-11.1); MONO % 7.7 % (3.8-10.2); NEUT % 81.2 % (42.8-82.8); PLATELET COUNT 206 K/MM3 (134-434); RDW 14.9 % (11.9-15.9); WHITE BLOOD COUNT 15.5 K/mm3 (4.0-10.0)
[2018-11-08 06:51] LABS: BLOOD UREA NITROGEN 13.8 mg/dL (7-18); CALCIUM 8.7 mg/dL (8.5-10.1); CREATININE 0.9 mg/dL (0.55-1.3); MAGNESIUM 2.1 mg/dL (1.8-2.4); PHOSPHOROUS 2.8 mg/dL (2.5-4.9); POTASSIUM 3.9 mmol/L (3.5-5.1)
[2018-11-08] MEDS ORDERED: NAPH,MB-DB/K PH,MBDB POWDER PACKET PO ONE (08:54)
[2018-11-08 09:35] LABS: HYALINE CASTS 1 /lpf (0-8); URINE APPEARANCE CLEAR; URINE BACTERIA 2.2 /hpf (NEGATIVE); URINE BILIRUBIN NEGATIVE (NEGATIVE); URINE COLOR YELLOW; URINE GLUCOSE (UA) NEGATIVE (NEGATIVE); URINE KETONE 3+ (NEGATIVE); URINE LEUK ESTERASE NEGATIVE (NEGATIVE); URINE NITRITE NEGATIVE (NEGATIVE); URINE PROTEIN TRACE (NEGATIVE); URINE RBC 78 /hpf (0-4); URINE UROBILINOGEN 0.2 mg/dL (0.2-1.0); URINE WBC 1 /hpf (0-5)
[2018-11-08] MEDS: FAMOTIDINE 20 MG/50 ML IVPB 20 MG/50 ML MG IVPB SCH ×2 (10:08→21:29)
[2018-11-08] MEDS: oxyCODONE HCL 40 MG SUSTAINED ACTING TABLET PO SCH ×2 (10:08→21:29)
[2018-11-08] MEDS: MUPIROCIN 2% TOPICAL OINTMENT FOR DECOLONIZATION NS SCH (10:45)
--- NOTE | 2018-11-08 11:42 | PATH ---
Surgical Pathology Report Patient Name: FABIEN GILL [facility]. Rec. #: [id number] /Age/Gender: 1965 (Age: 52) / M Account: [id number] Location: [facility] Taken: 11/05/2018 Received: 11/06/2018 Reported: 11/08/2018 Physicians: Alfredo Palma M.D. Specimen(s) Received A: L3/4 L4/5 DISC B: REMOVED HARDWARE Clinical History Fusion of spine, lumbar region L4-S1 posterior lumbar interbody fusion with removal of hardware Final Diagnosis A. L3/4, L4/5 DISC, DISCECTOMY: FRAGMENTS OF BONE AND CARTILAGE WITH FOCAL DEGENERATIVE CHANGE. B. REMOVED HARDWARE: CONSISTENT WITH HARDWARE. GROSS EXAMINATION ONLY. Electronically Signed Marlen Balbuena M.D. Gross Description A. Received in formalin, labeled "L3/4, L4/5 disc" are multiple irregular portions of bone and soft tissue measuring 3.0 x 3.0 x 0.5 cm in aggregate. Director Of Operations portion of specimen submitted in one cassette for decalcification. B. Received in formalin, labeled "removed hardware" are 4 screws with attached metal end. 2 of them measure 3 cm in length (including the metal end) and 0.4 cm in diameter, other two measures 5 cm in length (including the metal end) and 0.4 cm in diameter. Separate 4 round metal hardware measuring 8 mm in diameter and 0.3 cm in thickness. Separate two cylindrical metal hardware measuring 5 cm in length and 0.5 cm in diameter. Gross examination only. __ JITENDRA/11/06/2018 laura/11/06/2018
--- NOTE | 2018-11-08 12:04 | PN ---
Teaching Attending Note Name of Resident: Abdulaziz Pritchett ATTENDING PHYSICIAN STATEMENT I saw and evaluated the patient. I reviewed the resident's note and discussed the case with the resident. I agree with the resident's findings and plan as documented. SUBJECTIVE: Patient seen and examined in the ICU. Awake and alert. Clinically appears better. Low grade temperature overnight. Sore throat has improved. No CP or SOB. Pain improved from 12/06 to 07/06. Intake & Output 11/05/18 11/06/18 11/07/18 11/08/18 23:59 23:59 23:59 23:59 Intake Total 4575 4240 2530 1900 Output Total 2750 5650 1500 1300 Balance 1825 -1410 1030 600 Weight 224 lb 227 lb 4 oz Last Vital Signs Temp Pulse Resp BP Pulse Ox 99 F 110 H 17 151/100 96 11/08/18 10:00 11/08/18 10:00 11/08/18 10:00 11/08/18 10:00 11/08/18 08:11 Active Medications Acetaminophen (Ofirmev Injection -) 1,000 mg IVPB Q6H PRN PRN Reason: PAIN OR FEVER Last Admin: 11/08/18 00:07 Dose: 1,000 mg Chlorhexidine Gluconate (Hibiclens For Decolonization -) 1 applic TP HS [facility] Last Admin: 11/07/18 23:05 Dose: 1 applic Famotidine/Sodium Chloride (Pepcid 20 Mg Premixed Ivpb -) 20 mg in 50 mls @ 100 mls/hr IVPB BID [facility] Last Admin: 11/08/18 10:08 Dose: 100 mls/hr Lactated Ringer's (Lactated Ringers Solution) 1,000 mls @ 100 mls/hr IV ASDIR [facility] Last Admin: 11/08/18 08:00 Dose: 100 mls/hr Labetalol HCl (Normodyne Injection -) 10 mg IVPUSH Q6H PRN PRN Reason: HYPERTENSION Mupirocin (Bactroban Ointment (For Decolonization) -) 1 applic NS BID [facility] Stop: 11/10/18 21:59 Last Admin: 11/08/18 10:45 Dose: 1 applic Ondansetron HCl (Zofran Injection) 4 mg IVPUSH Q6H PRN PRN Reason: NAUSEA AND/OR VOMITING Oxycodone HCl (Oxycontin -) 40 mg PO BID PRANAY Last Admin: 11/08/18 10:08 Dose: 40 mg Oxycodone HCl (Roxicodone -) 10 mg PO Q3H PRN PRN Reason: PAIN LEVEL 4 - 6 Stop: 11/08/18 19:30 Last Admin: 11/08/18 11:22 Dose: 10 mg Oxymetazoline HCl (Afrin -) 2 spray NS BID PRN PRN Reason: NASAL CONGESTION Last Admin: 11/07/18 09:22 Dose: 2 sprays GENERAL: Awake and alert, more comfortable HEAD: Normal with no signs of trauma. EYES: EOMI Sclera Clear EARS, NOSE, THROAT: overall less swelling noted LUNGS: Clear HEART: RRR S1S2 ABDOMEN: Obese NDNT UPPER EXTREMITIES: 2+ pulses, warm, well-perfused. No cyanosis. No clubbing. LOWER EXTREMITIES: 2+ pulses, warm, well-perfused. No calf tenderness. No peripheral edema. NEUROLOGICAL: Non-focal SKIN: Warm, dry, normal turgor, no rashes or lesions noted. Laboratory Results - last 24 hr 11/06/18 11/07/18 11/08/18 11:30 05:35 05:30 WBC RBC Hgb Hct MCV MCH MCHC RDW Plt Count MPV Absolute Neuts (auto) Neutrophils % Neutrophils % (Manual) 81.0 Band Neutrophils % 0.0 Lymphocytes % Lymphocytes % (Manual) 4.0 L Monocytes % Monocytes % (Manual) 13 H Eosinophils % Eosinophils % (Manual) 0.0 Basophils % Basophils % (Manual) 0.0 Myelocytes % (Man) 0 Promyelocytes % (Man) 0 Blast Cells % (Manual) 0 Nucleated RBC % Metamyelocytes 0 Hypochromia 0 Platelet Estimate Normal Polychromasia 0 Poikilocytosis 0 Anisocytosis 1+ Microcytosis 0 Macrocytosis 1+ Sodium 133 L Potassium 3.9 Chloride 95 L Carbon Dioxide 30 Anion Gap 9 BUN 13.8 Creatinine 0.9 Est GFR (CKD-EPI)AfAm 111.83 Est GFR (CKD-EPI)NonAf 96.49 Random Glucose 89 Calcium 8.7 Phosphorus 2.8 Magnesium 2.1 Creatine Kinase 993 H Creatine Kinase Index 0.2 CK-MB (CK-2) 2.0 Urine Color Urine Appearance Urine pH Ur Specific [place] Urine Protein Urine Glucose (UA) Urine Ketones Urine Blood Urine Nitrite Urine Bilirubin Urine Urobilinogen Ur Leukocyte Esterase Urine WBC (Auto) Urine RBC (Auto) Urine Casts (Auto) U Epithel Cells (Auto) Urine Bacteria (Auto) Urine Eosinophils None seen 11/08/18 11/08/18 05:30 08:30 WBC 15.5 H RBC 4.70 Hgb 14.6 Hct 43.3 MCV 92.2 MCH 31.0 MCHC 33.6 RDW 14.9 Plt Count 206 MPV 6.8 L Absolute Neuts (auto) 12.6 H Neutrophils % 81.2 Neutrophils % (Manual) Band Neutrophils % Lymphocytes % 9.8 Lymphocytes % (Manual) Monocytes % 7.7 Monocytes % (Manual) Eosinophils % 0.8 D Eosinophils % (Manual) Basophils % 0.5 Basophils % (Manual) Myelocytes % (Man) Promyelocytes % (Man) Blast Cells % (Manual) Nucleated RBC % 0 Metamyelocytes Hypochromia Platelet Estimate Polychromasia Poikilocytosis Anisocytosis Microcytosis Macrocytosis Sodium Potassium Chloride Carbon Dioxide Anion Gap BUN Creatinine Est GFR (CKD-EPI)AfAm Est GFR (CKD-EPI)NonAf Random Glucose Calcium Phosphorus Magnesium Creatine Kinase Creatine Kinase Index CK-MB (CK-2) Urine Color Yellow Urine Appearance Clear Urine pH 8.0 D Ur Specific [place] 1.021 Urine Protein Trace Urine Glucose (UA) Negative Urine Ketones 3+ H Urine Blood 2+ H Urine Nitrite Negative Urine Bilirubin Negative Urine Urobilinogen 0.2 Ur Leukocyte Esterase Negative Urine WBC (Auto) 1 Urine RBC (Auto) 78 Urine Casts (Auto) 1 U Epithel Cells (Auto) 1.0 Urine Bacteria (Auto) 2.2 Urine Eosinophils ASSESSMENT/PLAN: POD # 3: removal of hardware L4-L5, inspection of fusion mass, L3-S1 laminectomies, L3-L4 & L4-L5 PLIF, L3-S1 posterior instrumented spinal fusion. HTN Resolving swelling of the Uvula Clinical history consistent with OSAS Elevated CPK: R/O Rhabdomyolysis O2 as needed Pain control Incentive Spirometry No NSAIDS PO as tolerated PT OOB to chair Floor when cleared by surgery Dr Castañeda
--- NOTE | 2018-11-08 12:54 | PN ---
Physical Exam: SUBJECTIVE: Patient seen and examined at bedside. Patient spiked temperature 101F this AM. Endorsing occasional chills, on/off sob since surgery and on/off reproducible chest pain since surgery. Likely deconditioning vs post-op fever (UA, UC, BCx sent). Denies headache, n/v/dysuria, abd pain. Passed flatus. OBJECTIVE: GEN: Well appearing, NAD, comfortable. AAOx3 HEENT: NC/AT, EOMI. No facial asymmetry. Moist mucous membranes. Posterior pharynx clear and unobstructed. Normal voice. Supple neck w/ FROM. CV: S1/S2, RRR, no m/r/g LUNG: CTAB, no wheezes, crackles, rales, rhonchi. GI: mildly distended. soft, nt, +BS, no guarding, no rebound. EXTREMITIES: 2+ distal pulses. No LE edema. No obvious deformities of all extremities. SKIN: warm, dry, normal turgor PSYCH: normal mood and affect NEURO: Moving all extremities well. Vital Signs Period Temp Pulse Resp BP Sys/Barrientos Pulse Ox Last 24 Hr 98.8 F-101 F 101-118 10- 115-159/66-100 95-96 Laboratory Results - last 24 hr 11/06/18 11/07/18 11/08/18 11:30 05:35 05:30 WBC RBC Hgb Hct MCV MCH MCHC RDW Plt Count MPV Absolute Neuts (auto) Neutrophils % Neutrophils % (Manual) 81.0 Band Neutrophils % 0.0 Lymphocytes % Lymphocytes % (Manual) 4.0 L Monocytes % Monocytes % (Manual) 13 H Eosinophils % Eosinophils % (Manual) 0.0 Basophils % Basophils % (Manual) 0.0 Myelocytes % (Man) 0 Promyelocytes % (Man) 0 Blast Cells % (Manual) 0 Nucleated RBC % Metamyelocytes 0 Hypochromia 0 Platelet Estimate Normal Polychromasia 0 Poikilocytosis 0 Anisocytosis 1+ Microcytosis 0 Macrocytosis 1+ Sodium 133 L Potassium 3.9 Chloride 95 L Carbon Dioxide 30 Anion Gap 9 BUN 13.8 Creatinine 0.9 Est GFR (CKD-EPI)AfAm 111.83 Est GFR (CKD-EPI)NonAf 96.49 Random Glucose 89 Calcium 8.7 Phosphorus 2.8 Magnesium 2.1 Creatine Kinase 993 H Creatine Kinase Index 0.2 CK-MB (CK-2) 2.0 Urine Color Urine Appearance Urine pH Ur Specific [place] Urine Protein Urine Glucose (UA) Urine Ketones Urine Blood Urine Nitrite Urine Bilirubin Urine Urobilinogen Ur Leukocyte Esterase Urine WBC (Auto) Urine RBC (Auto) Urine Casts (Auto) U Epithel Cells (Auto) Urine Bacteria (Auto) Urine Eosinophils None seen 11/08/18 11/08/18 05:30 08:30 WBC 15.5 H RBC 4.70 Hgb 14.6 Hct 43.3 MCV 92.2 MCH 31.0 MCHC 33.6 RDW 14.9 Plt Count 206 MPV 6.8 L Absolute Neuts (auto) 12.6 H Neutrophils % 81.2 Neutrophils % (Manual) Band Neutrophils % Lymphocytes % 9.8 Lymphocytes % (Manual) Monocytes % 7.7 Monocytes % (Manual) Eosinophils % 0.8 D Eosinophils % (Manual) Basophils % 0.5 Basophils % (Manual) Myelocytes % (Man) Promyelocytes % (Man) Blast Cells % (Manual) Nucleated RBC % 0 Metamyelocytes Hypochromia Platelet Estimate Polychromasia Poikilocytosis Anisocytosis Microcytosis Macrocytosis Sodium Potassium Chloride Carbon Dioxide Anion Gap BUN Creatinine Est GFR (CKD-EPI)AfAm Est GFR (CKD-EPI)NonAf Random Glucose Calcium Phosphorus Magnesium Creatine Kinase Creatine Kinase Index CK-MB (CK-2) Urine Color Yellow Urine Appearance Clear Urine pH 8.0 D Ur Specific [place] 1.021 Urine Protein Trace Urine Glucose (UA) Negative Urine Ketones 3+ H Urine Blood 2+ H Urine Nitrite Negative Urine Bilirubin Negative Urine Urobilinogen 0.2 Ur Leukocyte Esterase Negative Urine WBC (Auto) 1 Urine RBC (Auto) 78 Urine Casts (Auto) 1 U Epithel Cells (Auto) 1.0 Urine Bacteria (Auto) 2.2 Urine Eosinophils Active Medications Generic Name Dose Route Start Last Admin Trade Name Freq PRN Reason Stop Dose Admin Acetaminophen 1,000 mg 11/07/18 23:48 11/08/18 00:07 Ofirmev Injection - IVPB 1,000 mg Q6H PRN Administration PAIN OR FEVER Chlorhexidine Gluconate 1 applic 11/05/18 22:00 11/07/18 23:05 Hibiclens For Decolonization - TP 1 applic HS PRANAY Administration Famotidine/Sodium Chloride 20 mg in 50 mls @ 100 mls/hr 11/06/18 22:00 10:08 Pepcid 20 Mg Premixed Ivpb - IVPB 100 mls/hr BID PRANAY Administration Lactated Ringer's 1,000 mls @ 100 mls/hr 11/07/18 07:49 11/08/18 08:00 Lactated Ringers Solution IV 100 mls/hr ASDIR PRANAY Administration Labetalol HCl 10 mg 11/07/18 08:42 Normodyne Injection - IVPUSH Q6H PRN HYPERTENSION Mupirocin 1 applic 11/05/18 22:00 11/08/18 10:45 Bactroban Ointment (For Decolonization) - NS 11/10/18 21:59 1 applic BID PRANAY Administration Ondansetron HCl 4 mg 11/05/18 15:00 Zofran Injection IVPUSH Q6H PRN NAUSEA AND/OR VOMITING Oxycodone HCl 40 mg 11/06/18 22:00 11/08/18 10:08 Oxycontin - PO 40 mg BID PRANAY Administration Oxycodone HCl 10 mg 11/07/18 19:31 11/08/18 11:22 Roxicodone - PO 11/08/18 19:30 10 mg Q3H PRN Administration PAIN LEVEL 4 - 6 Oxymetazoline HCl 2 spray 11/07/18 08:00 11/07/18 09:22 Afrin - NS 2 sprays BID PRN Administration NASAL CONGESTION ASSESSMENT/PLAN: 52M PMH HTN presented to [facility] for removal of hardware L4-L5, inspection of fusion mass, L3-S1 laminectomies, L3-L4 & L4-L5 PLIF, L3-S1 posterior instrumented spinal fusion NEURO - neurovascularly intact ENT - uvular hypertrophy post op - likely 2/2 prone intubation vs KASSANDRA induced angiodema - pt was prone for several hrs during procedure and intubated that combination may be cause of this. - 4mg decadron IV was d/c by surgery. MSK - S/p removal of hardware L4-L5, inspection of fusion mass, L3-S1 laminectomies, L3-L4 & L4-L5 PLIF, L3-S1 posterior instrumented spinal fusion. 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 - Ofirimev PRN for Fever and/or Pain. - c/w Incentive Spirometry - c/w PT - no lifting of objects greater than 5 lbs for 9-12 months. ID - spiked fever 101 - UA neg - f/u UC and BCx Cardiology - HTN likely 2/2 Pain -continue to hold Lisinopril at this time given poor renal ftn and possible cause of uvular hypertrophy on exam is due to aceI induced angioedema. -labetalol 10mg IVP prn for BP control Renal - BELA vs rhabdomyolysis - renal sono showing b/l nephrolithiasis and no hydronephrosis - continue holding KASSANDRA inhibitor - continuing fluid 100cc/hr LR PPX - SCDs FENGI - LR @ 100cc/hr - Monitor Electrolytes - regular diet now dispo - transfer to m/s Visit type - Emergency Visit Emergency Visit: No - New Patient This patient is new to me today: No - Critical Care Critical Care patient: Yes Total Critical Care Time (in minutes): 30 Critical Care Statement: The care of this patient involved high complexity decision making to prevent further life threatening deterioration of the patient 's condition and/or to evaluate & treat vital organ system(s) failure or risk of failure.
--- NOTE | 2018-11-08 15:55 | PN ---
Physical Exam: SUBJECTIVE: Patient seen and examined. Pt endorsed feeling much better today. pain improved and throat soreness resolving. OBJECTIVE: Vital Signs Period Temp Pulse Resp BP Sys/Barrientos Pulse Ox Last 24 Hr 98.1 F-101 F 102-118 10- 115-159/66-100 95-98 GENERAL: The patient is awake, alert, and fully oriented, in no acute distress. Chest:Vesicular breath sounds B/L HEART: RRR, S1 S2, no added sounds Neurologically improved as per Surgeon Laboratory Results - last 24 hr 11/06/18 11/08/18 11/08/18 11:30 05:30 05:30 WBC 15.5 H RBC 4.70 Hgb 14.6 Hct 43.3 MCV 92.2 MCH 31.0 MCHC 33.6 RDW 14.9 Plt Count 206 MPV 6.8 L Absolute Neuts (auto) 12.6 H Neutrophils % 81.2 Lymphocytes % 9.8 Monocytes % 7.7 Eosinophils % 0.8 D Basophils % 0.5 Nucleated RBC % 0 Sodium 133 L Potassium 3.9 Chloride 95 L Carbon Dioxide 30 Anion Gap 9 BUN 13.8 Creatinine 0.9 Est GFR (CKD-EPI)AfAm 111.83 Est GFR (CKD-EPI)NonAf 96.49 Random Glucose 89 Calcium 8.7 Phosphorus 2.8 Magnesium 2.1 Creatine Kinase 993 H Creatine Kinase Index 0.2 CK-MB (CK-2) 2.0 Urine Color Urine Appearance Urine pH Ur Specific [place] Urine Protein Urine Glucose (UA) Urine Ketones Urine Blood Urine Nitrite Urine Bilirubin Urine Urobilinogen Ur Leukocyte Esterase Urine WBC (Auto) Urine RBC (Auto) Urine Casts (Auto) U Epithel Cells (Auto) Urine Bacteria (Auto) Urine Eosinophils None seen 11/08/18 08:30 WBC RBC Hgb Hct MCV MCH MCHC RDW Plt Count MPV Absolute Neuts (auto) Neutrophils % Lymphocytes % Monocytes % Eosinophils % Basophils % Nucleated RBC % Sodium Potassium Chloride Carbon Dioxide Anion Gap BUN Creatinine Est GFR (CKD-EPI)AfAm Est GFR (CKD-EPI)NonAf Random Glucose Calcium Phosphorus Magnesium Creatine Kinase Creatine Kinase Index CK-MB (CK-2) Urine Color Yellow Urine Appearance Clear Urine pH 8.0 D Ur Specific [place] 1.021 Urine Protein Trace Urine Glucose (UA) Negative Urine Ketones 3+ H Urine Blood 2+ H Urine Nitrite Negative Urine Bilirubin Negative Urine Urobilinogen 0.2 Ur Leukocyte Esterase Negative Urine WBC (Auto) 1 Urine RBC (Auto) 78 Urine Casts (Auto) 1 U Epithel Cells (Auto) 1.0 Urine Bacteria (Auto) 2.2 Urine Eosinophils Active Medications Generic Name Dose Route Start Last Admin Trade Name Freq PRN Reason Stop Dose Admin Acetaminophen 1,000 mg 11/07/18 23:48 11/08/18 00:07 Ofirmev Injection - IVPB 1,000 mg Q6H PRN Administration PAIN OR FEVER Chlorhexidine Gluconate 1 applic 11/05/18 22:00 11/07/18 23:05 Hibiclens For Decolonization - TP 1 applic HS PRANAY Administration Famotidine/Sodium Chloride 20 mg in 50 mls @ 100 mls/hr 11/06/18 22:00 10:08 Pepcid 20 Mg Premixed Ivpb - IVPB 100 mls/hr BID PRANAY Administration Labetalol HCl 10 mg 11/07/18 08:42 Normodyne Injection - IVPUSH Q6H PRN HYPERTENSION Mupirocin 1 applic 11/05/18 22:00 11/08/18 10:45 Bactroban Ointment (For Decolonization) - NS 11/10/18 21:59 1 applic BID PRANAY Administration Ondansetron HCl 4 mg 11/05/18 15:00 Zofran Injection IVPUSH Q6H PRN NAUSEA AND/OR VOMITING Oxycodone HCl 40 mg 11/06/18 22:00 11/08/18 10:08 Oxycontin - PO 40 mg BID PRANAY Administration Oxycodone HCl 10 mg 11/07/18 19:31 11/08/18 11:22 Roxicodone - PO 11/08/18 19:30 10 mg Q3H PRN Administration PAIN LEVEL 4 - 6 Oxymetazoline HCl 2 spray 11/07/18 08:00 11/07/18 09:22 Afrin - NS 2 sprays BID PRN Administration NASAL CONGESTION ASSESSMENT/PLAN: 52 yo male with no PMH s/p removal of hardware L4-L5, inspection of fusion mass , L3-S1 laminectomies, L3-L4& L4-L5 PLIF, L3-S1 posterior instrumented spinal fusion because of L4-L5 PLIF and sharp pain grading 6/10 radiating down the legs Post OP day 3 Neuro intact fever spike 100 then 101F. WBC trending down 21.8->15.5 patient pain improved to 5-6/10 from 12/06. pain regimen changed to Oxycodone 40mg PO BID and oxycodone 10mg PO Q3 PRN /NO NSAIDS Zofran for nausea PRN Patient passed flatus Diet advanced to regular ICS q15 min BELA 2/2 rhabdomyolysis CPK 2271 -> 993 repeat CK in AM Creatinine down to 0.9 from 1.2 fluids reduced to 100 ml UA was orange and cloudy, 3+ blood, RBC 448, cast 7 with pending Urine EOS negative repeat UA due to fever was negative HTN labetolol 10mg push Q6 PRN DVT Mechanical only TEDs, SCDs NO ANTICOAGULATIONS Problem List - Problems (1) Radiculopathy due to disorder of intervertebral disc of lumbar spine Code(s): M51.16 - INTERVERTEBRAL DISC DISORDERS W RADICULOPATHY, LUMBAR REGION Visit type - Emergency Visit Emergency Visit: Yes ED Registration Date: 11/05/18 Care time: The patient presented to the Emergency Department on the above date and was hospitalized for further evaluation of their emergent condition. - New Patient This patient is new to me today: No - Critical Care Critical Care patient: Yes Total Critical Care Time (in minutes): 35 Critical Care Statement: The care of this patient involved high complexity decision making to prevent further life threatening deterioration of the patient 's condition and/or to evaluate & treat vital organ system(s) failure or risk of failure. ATTENDING PHYSICIAN STATEMENT I saw and evaluated the patient. I reviewed the resident's note and discussed the case with the resident. I agree with the resident's findings and plan as documented. SUBJECTIVE: OBJECTIVE: ASSESSMENT AND PLAN:
--- NOTE | 2018-11-08 20:41 | PN ---
Teaching Attending Note Name of Resident: Meghan Shelley ATTENDING PHYSICIAN STATEMENT I saw and evaluated the patient. I reviewed the resident's note and discussed the case with the resident. I agree with the resident's findings and plan as documented. SUBJECTIVE: Patient is in ICU , POD #2 OBJECTIVE: Vital Signs Temperature 98.1 F 11/08/18 17:00 Pulse Rate 106 H 11/08/18 18:43 Respiratory Rate 16 11/08/18 18:43 Blood Pressure 112/93 11/08/18 18:43 O2 Sat by Pulse Oximetry (%) 96 11/08/18 17:00 GENERAL: The patient is awake, alert, and fully oriented, c/o having pain. HEAD: Normal with no signs of trauma. EYES: PERRL, extraocular movements intact, sclera anicteric, conjunctiva clear. ENT: Ears normal, oropharynx clear without exudates, moist mucous membranes. NECK: Trachea midline, full range of motion, supple. LUNGS: Breath sounds equal, clear to auscultation bilaterally, no wheezes, no crackles, no accessory muscle use. HEART: Regular rate and rhythm, S1, S2 positive, without murmur, rub or gallop. ABDOMEN: Soft, NT, nondistended, normoactive bowel sounds, no guarding, no rebound, no hepatosplenomegaly, no masses. EXTREMITIES: 2+ pulses, warm, well-perfused, no edema. NEUROLOGICAL: CN 2-12 grossly intact, rest of exam per dr Palma PSYCH: Normal mood, normal affect. SKIN: Warm, dry, normal turgor, no rashes or lesions noted CBCD WBC 15.5 K/mm3 (4.0-10.0) H 11/08/18 05:30 RBC 4.70 M/mm3 (4.00-5.60) 11/08/18 05:30 Hgb 14.6 GM/dL (11.7-16.9) 11/08/18 05:30 Hct 43.3 % (35.4-49) 11/08/18 05:30 MCV 92.2 fl (80-96) 11/08/18 05:30 MCHC 33.6 g/dl (32.0-35.9) 11/08/18 05:30 RDW 14.9 % (11.9-15.9) 11/08/18 05:30 Plt Count 206 K/MM3 (134-434) 11/08/18 05:30 MPV 6.8 fl (7.5-11.1) L 11/08/18 05:30 CMP Sodium 133 mmol/L (136-145) L 11/08/18 05:30 Potassium 3.9 mmol/L (3.5-5.1) 11/08/18 05:30 Chloride 95 mmol/L (98-107) L 11/08/18 05:30 Carbon Dioxide 30 mmol/L (21-32) 11/08/18 05:30 Anion Gap 9 MMOL/L (8-16) 11/08/18 05:30 BUN 13.8 mg/dL (7-18) 11/08/18 05:30 Creatinine 0.9 mg/dL (0.55-1.3) 11/08/18 05:30 Random Glucose 89 mg/dL (74-106) 11/08/18 05:30 Calcium 8.7 mg/dL (8.5-10.1) 11/08/18 05:30 CARDIAC ENZYMES Creatine Kinase 993 U/L (26-308) H 11/08/18 05:30 Current Medications Generic Name Dose Route Start Last Admin Trade Name Freq PRN Reason Stop Dose Admin Acetaminophen 1,000 mg 11/07/18 23:48 11/08/18 00:07 Ofirmev Injection - IVPB 1,000 mg Q6H PRN Administration PAIN OR FEVER Chlorhexidine Gluconate 1 applic 11/05/18 22:00 11/07/18 23:05 Hibiclens For Decolonization - TP 1 applic HS PRANAY Administration Famotidine/Sodium Chloride 20 mg in 50 mls @ 100 mls/hr 11/06/18 22:00 10:08 Pepcid 20 Mg Premixed Ivpb - IVPB 100 mls/hr BID PRANAY Administration Labetalol HCl 10 mg 11/07/18 08:42 Normodyne Injection - IVPUSH Q6H PRN HYPERTENSION Mupirocin 1 applic 11/05/18 22:00 11/08/18 10:45 Bactroban Ointment (For Decolonization) - NS 11/10/18 21:59 1 applic BID PRANAY Administration Ondansetron HCl 4 mg 09/09/19 15:00 Zofran Injection IVPUSH Q6H PRN NAUSEA AND/OR VOMITING Oxycodone HCl 40 mg 11/06/18 22:00 11/08/18 10:08 Oxycontin - PO 40 mg BID PRANAY Administration Oxymetazoline HCl 2 spray 11/07/18 08:00 11/07/18 09:22 Afrin - NS 2 sprays BID PRN Administration NASAL CONGESTION Initial Vital Signs Pulse Ox 97 11/05/18 06:55 ASSESSMENT AND PLAN: Patient is a 52 y/o man with h/o lower back pain s/p L4-s1 spinal fusion, and continued to have back pain who presented for spinal sx #POD#2 s/p removal of hardware L4-L5, inspection of fusion mass, L3-S1 laminectomies, L3-L4 & L4-L5 PLIF, L3-S1 posterior instrumented spinal fusion, on LABORATORY ASSISTANT pump as per ortho and anesthesia , NPO until after flatus , NO NSAIDs , no aspirin, cont holliday #Acute leukocytosis is probably stress reaction to sx s/p steroid , will monitor # s/p Stridor and edematous uvula: due to intubation , will monitor # BELA: improved 2.2-->1.2 improved s/p IVF # h/o HTN: on Labetolol continue start low dose norvac and anny-I on discharge DVT px: SCDs for now, NO AC as per ortho
[2018-11-08] MEDS: CHLORHEXIDINE GLUCONATE 4% CLEANSER FOR DECOLONIZATION TP SCH (21:30)
[2018-11-09] MEDS: ACETAMINOPHEN 1000 MG/100 ML VIAL (NON FORMULARY) IVPB PRN (01:03)
[2018-11-09] MEDS ORDERED: amLODIPine BESYLATE 5 MG TABLET (FP) PO ONE (06:10)
[2018-11-09] MEDS ORDERED: ACETAMINOPHEN 1000 MG/100 ML VIAL (NON FORMULARY) IVPB PRN (07:17)
[2018-11-09] MEDS ORDERED: ONDANSETRON 4 MG/2 ML VIAL IVPUSH PRN (07:17)
[2018-11-09] MEDS ORDERED: LABETALOL HCL 5 MG/1 ML (100MG/20 ML VIAL) IVPUSH PRN (07:17)
[2018-11-09] MEDS ORDERED: OXYMETAZOLINE 0.05% NASAL SOLUTION 15 ML BOTTLE NS PRN (07:17)
[2018-11-09 08:00] LABS: BASO % 0.5 % (0-2.0); HEMATOCRIT 42.8 % (35.4-49); HEMOGLOBIN 14.3 GM/dL (11.7-16.9); LYMPH % 14.3 % (8-40); MCHC 33.3 g/dl (32.0-35.9); MEAN CELL VOLUME 93.2 fl (80-96); MEAN PLT VOLUME 7.4 fl (7.5-11.1); MONO % 9.3 % (3.8-10.2); NEUT % 73.9 % (42.8-82.8); PLATELET COUNT 231 K/MM3 (134-434); RBC 4.59 M/mm3 (4.00-5.60); RDW 14.8 % (11.9-15.9); WHITE BLOOD COUNT 14.3 K/mm3 (4.0-10.0)
[2018-11-09 08:05] LABS: BLOOD UREA NITROGEN 11.9 mg/dL (7-18); CALCIUM 8.5 mg/dL (8.5-10.1); CREATININE 0.8 mg/dL (0.55-1.3); POTASSIUM 3.9 mmol/L (3.5-5.1)
[2018-11-09 08:15] LABS: MAGNESIUM 2.1 mg/dL (1.8-2.4); PHOSPHOROUS 3.8 mg/dL (2.5-4.9)
[2018-11-09] MEDS: oxyCODONE HCL 40 MG SUSTAINED ACTING TABLET PO SCH ×2 (09:06→21:08)
[2018-11-09] MEDS: FAMOTIDINE 20 MG/50 ML IVPB 20 MG/50 ML MG IVPB SCH ×2 (09:06→21:09)
--- NOTE | 2018-11-09 09:42 | PN ---
Teaching Attending Note Name of Resident: Meghan Shelley ATTENDING PHYSICIAN STATEMENT I saw and evaluated the patient. I reviewed the resident's note and discussed the case with the resident. I agree with the resident's findings and plan as documented. SUBJECTIVE: Patient is feeling better but c/o having back pain pod#3 Patient had flatus today. OBJECTIVE: Vital Signs Temperature 97.7 F 11/09/18 09:08 Pulse Rate 114 H 11/09/18 09:08 Respiratory Rate 22 H 11/09/18 09:08 Blood Pressure 117/99 11/09/18 09:08 O2 Sat by Pulse Oximetry (%) 96 11/08/18 21:00 GENERAL: The patient is awake, alert, and fully oriented, in no acute distress. HEAD: Normal with no signs of trauma. EYES: PERRL, extraocular movements intact, sclera anicteric, conjunctiva clear. ENT: Ears normal, oropharynx clear without exudates, moist mucous membranes. NECK: Trachea midline, full range of motion, supple. LUNGS: Breath sounds equal, clear to auscultation bilaterally, no wheezes, no crackles, no accessory muscle use. HEART: Regular rate and rhythm, S1, S2 without murmur, rub or gallop. ABDOMEN: Soft, NT, nondistended, normoactive bowel sounds, no guarding, no rebound, no hepatosplenomegaly, no masses. EXTREMITIES: 2+ pulses, warm, well-perfused, no edema. NEUROLOGICAL: CN 2-12 grossly intact, rest of exam per dr Palma PSYCH: Normal mood, normal affect. SKIN: Warm, dry, normal turgor, no rashes or lesions noted CBCD WBC 14.3 K/mm3 (4.0-10.0) H 11/09/18 05:30 RBC 4.59 M/mm3 (4.00-5.60) 11/09/18 05:30 Hgb 14.3 GM/dL (11.7-16.9) 11/09/18 05:30 Hct 42.8 % (35.4-49) 11/09/18 05:30 MCV 93.2 fl (80-96) 11/09/18 05:30 MCHC 33.3 g/dl (32.0-35.9) 11/09/18 05:30 RDW 14.8 % (11.9-15.9) 11/09/18 05:30 Plt Count 231 K/MM3 (134-434) 11/09/18 05:30 MPV 7.4 fl (7.5-11.1) L 11/09/18 05:30 CMP Sodium 136 mmol/L (136-145) 11/09/18 05:30 Potassium 3.9 mmol/L (3.5-5.1) 11/09/18 05:30 Chloride 98 mmol/L (98-107) 11/09/18 05:30 Carbon Dioxide 28 mmol/L (21-32) 11/09/18 05:30 Anion Gap 10 MMOL/L (8-16) 11/09/18 05:30 BUN 11.9 mg/dL (7-18) 11/09/18 05:30 Creatinine 0.8 mg/dL (0.55-1.3) 11/09/18 05:30 Random Glucose 78 mg/dL (74-106) 11/09/18 05:30 Calcium 8.5 mg/dL (8.5-10.1) 11/09/18 05:30 CARDIAC ENZYMES Creatine Kinase 796 U/L (26-308) H 11/09/18 05:30 Current Medications Generic Name Dose Route Start Last Admin Trade Name Freq PRN Reason Stop Dose Admin Acetaminophen 1,000 mg 11/09/18 07:17 Ofirmev Injection - IVPB Q6H PRN PAIN OR FEVER Famotidine/Sodium Chloride 20 mg in 50 mls @ 100 mls/hr 11/09/18 10:00 09:06 Pepcid 20 Mg Premixed Ivpb - IVPB Not Given BID PRANAY Labetalol HCl 10 mg 11/09/18 07:17 Normodyne Injection - IVPUSH Q6H PRN HYPERTENSION Ondansetron HCl 4 mg 11/09/18 07:17 Zofran Injection IVPUSH Q6H PRN NAUSEA AND/OR VOMITING Oxycodone HCl 40 mg 11/09/18 10:00 11/09/18 09:06 Oxycontin - PO 40 mg BID PRANAY Administration Oxymetazoline HCl 2 spray 11/09/18 07:17 Afrin - NS 11/11/18 08:00 BID PRN NASAL CONGESTION Home Medications Medication Instructions Recorded Ibuprofen [Motrin -] 800 mg PO PRN PRN 09/06/19 Multivitamin [One-Daily 1 each PO DAILY 11/02/18 Multi-Vitamin] Oxymorphone HCl [Oxymorphone HCl 40 mg PO TID 11/02/18 ER] ASSESSMENT AND PLAN: Patient is a 52 y/o man with h/o lower back pain s/p L4-s1 spinal fusion, and continued to have back pain who presented for spinal sx # POD#3 s/p removal of hardware L4-L5, inspection of fusion mass, L3-S1 laminectomies, L3-L4 & L4-L5 PLIF, L3-S1 posterior instrumented spinal fusion, Off HEALTH COORDINATOR pump now, started diet had flatus , NO NSAIDs , no aspirin, off holliday #Acute leukocytosis is probably stress reaction to sx s/p steroid , trending down # s/p Stridor and edematous uvula: improved s/p intubation # BELA: improved 2.2-->1.2-->0.8 improved s/p IVF # h/o HTN: on Labetolol now, norvasc and anny-I on discharge DVT px: SCDs for now, NO AC as per ortho
--- NOTE | 2018-11-09 15:33 | PN ---
Physical Exam: SUBJECTIVE: Patient seen and examined. pt was lying in bed c/o increasing pain in the distribution of his previous neuropathy. OBJECTIVE: Vital Signs Period Temp Pulse Resp BP Sys/Barrientos Pulse Ox Last 24 Hr 97.7 F-99.0 F 101-114 15-22 112-161/88-99 96-96 GENERAL: The patient is awake, alert, and fully oriented, in mod distress. HEAD: Normal with no signs of trauma. LUNGS: Breath sounds equal, clear to auscultation bilaterally, no wheezes, no crackles, no accessory muscle use. HEART: Regular rate and rhythm, S1, S2 without murmur, rub or gallop. NEUROLOGICAL: as per surgeon Laboratory Results - last 24 hr 11/09/18 11/09/18 11/09/18 05:30 05:30 05:30 WBC 14.3 H RBC 4.59 Hgb 14.3 Hct 42.8 MCV 93.2 MCH 31.0 MCHC 33.3 RDW 14.8 Plt Count 231 MPV 7.4 L Absolute Neuts (auto) 10.6 H Neutrophils % 73.9 Lymphocytes % 14.3 D Monocytes % 9.3 Eosinophils % 2.0 D Basophils % 0.5 Nucleated RBC % 0 Sodium 136 Potassium 3.9 Chloride 98 Carbon Dioxide 28 Anion Gap 10 BUN 11.9 Creatinine 0.8 Est GFR (CKD-EPI)AfAm 117.38 Est GFR (CKD-EPI)NonAf 101.27 Random Glucose 78 Calcium 8.5 Phosphorus 3.8 Magnesium 2.1 Creatine Kinase 796 H Creatine Kinase Index 0.2 CK-MB (CK-2) 2.1 Active Medications Generic Name Dose Route Start Last Admin Trade Name Freq PRN Reason Stop Dose Admin Acetaminophen 1,000 mg 11/09/18 07:17 Ofirmev Injection - IVPB Q6H PRN PAIN OR FEVER Famotidine/Sodium Chloride 20 mg in 50 mls @ 100 mls/hr 11/09/18 10:00 09:06 Pepcid 20 Mg Premixed Ivpb - IVPB Not Given BID [facility] Labetalol HCl 10 mg 11/09/18 07:17 Normodyne Injection - IVPUSH Q6H PRN HYPERTENSION Ondansetron HCl 4 mg 11/09/18 07:17 Zofran Injection IVPUSH Q6H PRN NAUSEA AND/OR VOMITING Oxycodone HCl 40 mg 11/09/18 10:00 11/09/18 09:06 Oxycontin - PO 40 mg BID PRANAY Administration Oxycodone HCl 10 mg 11/09/18 14:46 Roxicodone - PO Q6H PRN PAIN LEVEL 6-10 Oxymetazoline HCl 2 spray 11/09/18 07:17 Afrin - NS 11/11/18 08:00 BID PRN NASAL CONGESTION ASSESSMENT/PLAN: 52 yo male with no PMH s/p removal of hardware L4-L5, inspection of fusion mass , L3-S1 laminectomies, L3-L4& L4-L5 PLIF, L3-S1 posterior instrumented spinal fusion because of L4-L5 PLIF and sharp pain grading 6/10 radiating down the legs Post OP day 4 patient c/o pain. pain regimen changed to Oxycodone 40mg PO BID and oxycodone 10mg PO Q6 PRN /NO NSAIDS Zofran for nausea PRN Patient passed flatus Diet advanced to regular and patient is tolerating diet well BELA 2/2 rhabdomyolysis CPK 2271 -> 993-> 796 today Creatinine down to 0.9 from 0.8 PO fluid intake HTN labetolol 10mg push Q6 PRN DVT Mechanical only TEDs, SCDs NO ANTICOAGULATIONS Problem List - Problems (1) Radiculopathy due to disorder of intervertebral disc of lumbar spine Code(s): M51.16 - INTERVERTEBRAL DISC DISORDERS W RADICULOPATHY, LUMBAR REGION Visit type - Emergency Visit Emergency Visit: Yes ED Registration Date: 11/05/18 Care time: The patient presented to the Emergency Department on the above date and was hospitalized for further evaluation of their emergent condition. - New Patient This patient is new to me today: No - Critical Care Critical Care patient: No - Discharge Referral Referred to [facility] Med P.C.: No ATTENDING PHYSICIAN STATEMENT I saw and evaluated the patient. I reviewed the resident's note and discussed the case with the resident. I agree with the resident's findings and plan as documented. SUBJECTIVE: OBJECTIVE: ASSESSMENT AND PLAN:
[2018-11-09] MEDS: oxyCODONE HCL 5 MG TABLET PO PRN ×2 (16:24→22:49)
[2018-11-10] MEDS: oxyCODONE HCL 5 MG TABLET PO PRN ×2 (04:47→19:53)
[2018-11-10 08:17] LABS: BASO % 0.8 % (0-2.0); EOS % 2.8 % (0-4.5); HEMATOCRIT 40.5 % (35.4-49); HEMOGLOBIN 13.7 GM/dL (11.7-16.9); LYMPH % 16.8 % (8-40); MCH 30.9 pg (25.7-33.7); MCHC 33.8 g/dl (32.0-35.9); MEAN CELL VOLUME 91.3 fl (80-96); MONO % 10.9 % (3.8-10.2); NEUT % 68.7 % (42.8-82.8); PLATELET COUNT 255 K/MM3 (134-434); RBC 4.43 M/mm3 (4.00-5.60); RDW 14.4 % (11.9-15.9); WHITE BLOOD COUNT 10.8 K/mm3 (4.0-10.0)
[2018-11-10] MEDS: FAMOTIDINE 20 MG/50 ML IVPB 20 MG/50 ML MG IVPB SCH ×2 (09:03→22:16)
[2018-11-10 09:11] LABS: BLOOD UREA NITROGEN 11.6 mg/dL (7-18); CALCIUM 8.7 mg/dL (8.5-10.1); CREATININE 0.9 mg/dL (0.55-1.3); POTASSIUM 3.8 mmol/L (3.5-5.1)
[2018-11-10] MEDS ORDERED: oxyCODONE HCL 5 MG TABLET PO PRN (09:40)
[2018-11-10] MEDS: oxyCODONE HCL 40 MG SUSTAINED ACTING TABLET PO SCH ×2 (11:05→22:14)
--- NOTE | 2018-11-10 19:26 | PN ---
Progress Note (short form) - Note Progress Note: Patient feels better , still c/o having pain but better, asking to go to Rehab. Vital Signs Temperature 97.8 F 11/10/18 15:00 Pulse Rate 97 H 11/10/18 15:00 Respiratory Rate 20 11/10/18 15:00 Blood Pressure 132/87 11/10/18 15:00 O2 Sat by Pulse Oximetry (%) 96 11/09/18 09:00 GENERAL: The patient is awake, alert, and fully oriented, in no acute distress. HEAD: Normal with no signs of trauma. EYES: PERRL, extraocular movements intact, sclera anicteric, conjunctiva clear. ENT: Ears normal, oropharynx clear without exudates, moist mucous membranes. NECK: Trachea midline, full range of motion, supple. LUNGS: Breath sounds equal, clear to auscultation bilaterally, no wheezes, no crackles, no accessory muscle use. HEART: Regular rate and rhythm, S1, S2 without murmur, rub or gallop. ABDOMEN: Soft, NT, nondistended, normoactive bowel sounds, no guarding, no rebound, no hepatosplenomegaly, no masses. EXTREMITIES: 2+ pulses, warm, well-perfused, no edema. NEUROLOGICAL: CN 2-12 grossly intact, rest of exam per dr Palma PSYCH: Normal mood, normal affect. SKIN: Warm, dry, normal turgor, no rashes or lesions noted CBCD WBC 10.8 K/mm3 (4.0-10.0) H 11/10/18 07:28 RBC 4.43 M/mm3 (4.00-5.60) 11/10/18 07:28 Hgb 13.7 GM/dL (11.7-16.9) 11/10/18 07:28 Hct 40.5 % (35.4-49) 11/10/18 07:28 MCV 91.3 fl (80-96) 11/10/18 07:28 MCHC 33.8 g/dl (32.0-35.9) 11/10/18 07:28 RDW 14.4 % (11.9-15.9) 11/10/18 07:28 Plt Count 255 K/MM3 (134-434) 11/10/18 07:28 MPV 7.0 fl (7.5-11.1) L 11/10/18 07:28 CMP Sodium 134 mmol/L (136-145) L 11/10/18 07:28 Potassium 3.8 mmol/L (3.5-5.1) 11/10/18 07:28 Chloride 96 mmol/L (98-107) L 11/10/18 07:28 Carbon Dioxide 29 mmol/L (21-32) 11/10/18 07:28 Anion Gap 10 MMOL/L (8-16) 11/10/18 07:28 BUN 11.6 mg/dL (7-18) 11/10/18 07:28 Creatinine 0.9 mg/dL (0.55-1.3) 11/10/18 07:28 Random Glucose 91 mg/dL (74-106) 11/10/18 07:28 Calcium 8.7 mg/dL (8.5-10.1) 11/10/18 07:28 CARDIAC ENZYMES Creatine Kinase 613 U/L (26-308) H 11/10/18 07:28 Current Medications Generic Name Dose Route Start Last Admin Trade Name Freq PRN Reason Stop Dose Admin Acetaminophen 1,000 mg 11/10/18 22:00 Tylenol - PO TID PRANAY Famotidine/Sodium Chloride 20 mg in 50 mls @ 100 mls/hr 11/09/18 10:00 09:03 Pepcid 20 Mg Premixed Ivpb - IVPB Not Given BID [facility] Labetalol HCl 10 mg 11/09/18 07:17 Normodyne Injection - IVPUSH Q6H PRN HYPERTENSION Ondansetron HCl 4 mg 11/09/18 07:17 Zofran Injection IVPUSH Q6H PRN NAUSEA AND/OR VOMITING Oxycodone HCl 40 mg 11/09/18 10:00 11/10/18 11:05 Oxycontin - PO 40 mg BID PRANAY Administration Oxycodone HCl 10 mg 11/10/18 18:33 Roxicodone - PO Q4H PRN PAIN LEVEL 6-10 Oxymetazoline HCl 2 spray 11/09/18 07:17 Afrin - NS 11/11/18 08:00 BID PRN NASAL CONGESTION Home Medications Medication Instructions Recorded Ibuprofen [Motrin -] 800 mg PO PRN PRN 11/02/18 Multivitamin [One-Daily 1 each PO DAILY 11/02/18 Multi-Vitamin] Oxymorphone HCl [Oxymorphone HCl 40 mg PO TID 11/02/18 ER] ASSESSMENT AND PLAN: Patient is a 52 y/o man with h/o lower back pain s/p L4-s1 spinal fusion, and continued to have back pain who presented for spinal sx # POD#4 s/p removal of hardware L4-L5, inspection of fusion mass, L3-S1 laminectomies, L3-L4 & L4-L5 PLIF, L3-S1 posterior instrumented spinal fusion, 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 #Acute leukocytosis is probably stress reaction to sx s/p steroid , trending down 10.8 today # s/p Stridor and edematous uvula: improved s/p intubation # BELA: improved 2.2-->1.2-->0.8 improved s/p IVF # h/o HTN: on Labetolol now, norvasc and anny-I on discharge DVT px: SCDs for now, NO AC as per ortho Visit type - Emergency Visit Emergency Visit: Yes ED Registration Date: 11/05/18 Care time: The patient presented to the Emergency Department on the above date and was hospitalized for further evaluation of their emergent condition. - New Patient This patient is new to me today: No - Critical Care Critical Care patient: No - Discharge Referral Referred to [facility] Med P.C.: No
[2018-11-10] MEDS: ACETAMINOPHEN 500 MG TABLET (FP) PO SCH (22:16)
[2018-11-11] MEDS: oxyCODONE HCL 5 MG TABLET PO PRN ×4 (02:46→18:15)
[2018-11-11] MEDS: ACETAMINOPHEN 500 MG TABLET (FP) PO SCH ×3 (07:00→22:02)
[2018-11-11] MEDS: oxyCODONE HCL 40 MG SUSTAINED ACTING TABLET PO SCH ×2 (09:51→22:01)
[2018-11-11] MEDS: LABETALOL HCL 100 MG TABLET (FP) PO SCH ×2 (09:51→22:03)
[2018-11-11] MEDS: POLYETHYLENE GLYCOL 3350 119 GM BTL PO SCH ×2 (14:21→22:03)
--- NOTE | 2018-11-11 18:51 | PN ---
Physical Exam: SUBJECTIVE: Patient seen and examined at the bedside, there were no acute events overnight. Patient reports he still has pain but it is improving. OBJECTIVE: Vital Signs Period Temp Pulse Resp BP Sys/Barrientos Pulse Ox Last 24 Hr 97.8 F-98.4 F 88-92 20-20 124-155/71-83 94-97 GENERAL: The patient is awake, alert, and fully oriented, in mod distress. HEAD: Normal with no signs of trauma. LUNGS: Breath sounds equal, clear to auscultation bilaterally, no wheezes, no crackles, no accessory muscle use. HEART: Regular rate and rhythm, S1, S2 without murmur, rub or gallop. NEUROLOGICAL: as per surgeon Active Medications Generic Name Dose Route Start Last Admin Trade Name Freq PRN Reason Stop Dose Admin Acetaminophen 1,000 mg 11/10/18 22:00 11/11/18 14:21 Tylenol - PO 1,000 mg TID PRANAY Administration Docusate Sodium 300 mg 11/11/18 22:00 Colace - PO HS PRANAY Labetalol HCl 100 mg 11/11/18 10:00 11/11/18 09:51 Normodyne - PO 100 mg BID PRANAY Administration Ondansetron HCl 4 mg 11/09/18 07:17 Zofran Injection IVPUSH Q6H PRN NAUSEA AND/OR VOMITING Oxycodone HCl 40 mg 11/09/18 10:00 11/11/18 09:51 Oxycontin - PO 40 mg BID PRANAY Administration Oxycodone HCl 10 mg 11/10/18 18:33 11/11/18 18:15 Roxicodone - PO 10 mg Q4H PRN Administration PAIN LEVEL 6-10 Polyethylene Glycol 17 gm 11/11/18 11:30 11/11/18 14:21 Miralax (For Daily Use) - PO 17 gm BID PRANAY Administration ASSESSMENT/PLAN: 52 yo male with no PMH s/p removal of hardware L4-L5, inspection of fusion mass , L3-S1 laminectomies, L3-L4& L4-L5 PLIF, L3-S1 posterior instrumented spinal fusion because of L4-L5 PLIF and sharp pain grading 6/10 radiating down the legs Post OP day 5 pain better controlled but patient still somewhat uncomfortable - Oxycontin 40mg PO BID for pain - Oxycodone 10mg PO Q4 PRN for pain /NO NSAIDS - Zofran for nausea PRN - Patient passed flatus - Diet advanced to regular and patient is tolerating diet well - Patient still no BM, miralax and colace for stool softening BELA 2/2 rhabdomyolysis CPK 2271 -> 993-> 796 today Creatinine down to 0.9 from 0.8 PO fluid intake HTN labetolol 10mg push Q6 PRN DVT Mechanical only TEDs, SCDs NO ANTICOAGULATIONS Visit type - Emergency Visit Emergency Visit: No - New Patient This patient is new to me today: Yes Date on this admission: 11/11/18 - Critical Care Critical Care patient: No - Discharge Referral Referred to [facility] Med P.C.: No ATTENDING PHYSICIAN STATEMENT I saw and evaluated the patient. I reviewed the resident's note and discussed the case with the resident. I agree with the resident's findings and plan as documented. SUBJECTIVE: OBJECTIVE: ASSESSMENT AND PLAN:
--- NOTE | 2018-11-11 20:56 | PN ---
Teaching Attending Note Name of Resident: Marine Tavera ATTENDING PHYSICIAN STATEMENT I saw and evaluated the patient. I reviewed the resident's note and discussed the case with the resident. I agree with the resident's findings and plan as documented. SUBJECTIVE: Patient is feeling well, pain is better but as per patient her dressing was soaked with blood. OBJECTIVE: Vital Signs Temperature 97.6 F 11/11/18 18:00 Pulse Rate 84 11/11/18 18:00 Respiratory Rate 20 11/11/18 18:00 Blood Pressure 141/63 11/11/18 18:00 O2 Sat by Pulse Oximetry (%) 97 11/11/18 09:00 GENERAL: The patient is awake, alert, and fully oriented, in no acute distress. HEAD: Normal with no signs of trauma. EYES: PERRL, extraocular movements intact, sclera anicteric, conjunctiva clear. ENT: Ears normal, oropharynx clear without exudates, moist mucous membranes. NECK: Trachea midline, full range of motion, supple. LUNGS: Breath sounds equal, clear to auscultation bilaterally, no wheezes, no crackles, no accessory muscle use. HEART: Regular rate and rhythm, S1, S2 without murmur, rub or gallop. ABDOMEN: Soft, NT, nondistended, normoactive bowel sounds, no guarding, no rebound, no hepatosplenomegaly, no masses. EXTREMITIES: 2+ pulses, warm, well-perfused, no edema. NEUROLOGICAL: CN 2-12 grossly intact, rest of exam per dr Palma PSYCH: Normal mood, normal affect. SKIN: Warm, dry, normal turgor, no rashes or lesions noted CBCD WBC 10.8 K/mm3 (4.0-10.0) H 11/10/18 07:28 RBC 4.43 M/mm3 (4.00-5.60) 11/10/18 07:28 Hgb 13.7 GM/dL (11.7-16.9) 11/10/18 07:28 Hct 40.5 % (35.4-49) 11/10/18 07:28 MCV 91.3 fl (80-96) 11/10/18 07:28 MCHC 33.8 g/dl (32.0-35.9) 11/10/18 07:28 RDW 14.4 % (11.9-15.9) 11/10/18 07:28 Plt Count 255 K/MM3 (134-434) 11/10/18 07:28 MPV 7.0 fl (7.5-11.1) L 11/10/18 07:28 CMP Sodium 134 mmol/L (136-145) L 11/10/18 07:28 Potassium 3.8 mmol/L (3.5-5.1) 11/10/18 07:28 Chloride 96 mmol/L (98-107) L 11/10/18 07:28 Carbon Dioxide 29 mmol/L (21-32) 11/10/18 07:28 Anion Gap 10 MMOL/L (8-16) 11/10/18 07:28 BUN 11.6 mg/dL (7-18) 11/10/18 07:28 Creatinine 0.9 mg/dL (0.55-1.3) 11/10/18 07:28 Random Glucose 91 mg/dL (74-106) 11/10/18 07:28 Calcium 8.7 mg/dL (8.5-10.1) 11/10/18 07:28 CARDIAC ENZYMES Creatine Kinase 613 U/L (26-308) H 11/10/18 07:28 Current Medications Generic Name Dose Route Start Last Admin Trade Name Freq PRN Reason Stop Dose Admin Acetaminophen 1,000 mg 11/10/18 22:00 11/11/18 14:21 Tylenol - PO 1,000 mg TID PRANAY Administration Docusate Sodium 300 mg 11/11/18 22:00 Colace - PO HS PRANAY Labetalol HCl 100 mg 11/11/18 10:00 11/11/18 09:51 Normodyne - PO 100 mg BID PRANAY Administration Ondansetron HCl 4 mg 11/09/18 07:17 Zofran Injection IVPUSH Q6H PRN NAUSEA AND/OR VOMITING Oxycodone HCl 40 mg 11/09/18 10:00 11/11/18 09:51 Oxycontin - PO 40 mg BID PRANAY Administration Oxycodone HCl 10 mg 11/10/18 18:33 11/11/18 18:15 Roxicodone - PO 10 mg Q4H PRN Administration PAIN LEVEL 6-10 Polyethylene Glycol 17 gm 11/11/18 11:30 11/11/18 14:21 Miralax (For Daily Use) - PO 17 gm BID PRANAY Administration Home Medications Medication Instructions Recorded Ibuprofen [Motrin -] 800 mg PO PRN PRN 11/02/18 Multivitamin [One-Daily 1 each PO DAILY 11/02/18 Multi-Vitamin] Oxymorphone HCl [Oxymorphone HCl 40 mg PO TID 11/02/18 ER] ASSESSMENT AND PLAN: Patient is a 52 y/o man with h/o lower back pain s/p L4-s1 spinal fusion, and continued to have back pain who presented for spinal sx # POD#5 s/p removal of hardware L4-L5, inspection of fusion mass, L3-S1 laminectomies, L3-L4 & L4-L5 PLIF, L3-S1 posterior instrumented spinal fusion, Off P[employer] LOAD AND UNLOAD pump now, on regular diet , NO NSAIDs , no aspirin, off holliday , having Bms and pain is better controlled. #Acute leukocytosis is probably stress reaction to sx s/p steroid , trending down 10.8 , will repeat in am # s/p Stridor and edematous uvula: improved s/p intubation # BELA: improved 2.2-->1.2-->0.8 improved s/p IVF # h/o HTN: on Labetolol now, norvasc and anny-I on discharge DVT px: SCDs for now, NO AC as per ortho will repeat cbc, cmp, patient wants to go to rehab. placed a call to to see the patient and check the dressing.
[2018-11-11] MEDS ORDERED: DOCUSATE SODIUM 100 MG CAPSULE (FP) PO SCH (22:00)
[2018-11-12] MEDS: oxyCODONE HCL 5 MG TABLET PO PRN (02:40)
[2018-11-12] MEDS: ACETAMINOPHEN 500 MG TABLET (FP) PO SCH ×2 (06:29→13:08)
[2018-11-12 07:39] LABS: BASO % 0.7 % (0-2.0); EOS % 3.6 % (0-4.5); HEMATOCRIT 40.9 % (35.4-49); HEMOGLOBIN 13.9 GM/dL (11.7-16.9); LYMPH % 24.5 % (8-40); MCHC 33.9 g/dl (32.0-35.9); MEAN CELL VOLUME 91.5 fl (80-96); MEAN PLT VOLUME 7.3 fl (7.5-11.1); MONO % 7.7 % (3.8-10.2); NEUT % 63.5 % (42.8-82.8); PLATELET COUNT 345 K/MM3 (134-434); RBC 4.47 M/mm3 (4.00-5.60); RDW 14.4 % (11.9-15.9)
[2018-11-12 08:05] LABS: INR 1.05 (0.83-1.09); PROTHROMBIN TIME (PATIENT) 12.4 SEC (9.7-13.0)
[2018-11-12 08:16] LABS: ALBUMIN 3.1 g/dl (3.4-5.0); BILIRUBIN,TOTAL 0.9 mg/dL (0.2-1); BLOOD UREA NITROGEN 10.4 mg/dL (7-18); CALCIUM 9.1 mg/dL (8.5-10.1); CREATININE 0.9 mg/dL (0.55-1.3); MAGNESIUM 2.3 mg/dL (1.8-2.4); PHOSPHOROUS 4.2 mg/dL (2.5-4.9); TOT PROT 6.9 g/dl (6.4-8.2)
[2018-11-12] MEDS: oxyCODONE HCL 40 MG SUSTAINED ACTING TABLET PO SCH (09:06)
[2018-11-12] MEDS: POLYETHYLENE GLYCOL 3350 119 GM BTL PO SCH (09:06)
[2018-11-12] MEDS: LABETALOL HCL 100 MG TABLET (FP) PO SCH (09:07)
[2018-11-12 14:56] VITALS: BMI 31.4
--- NOTE | 2018-11-12 15:11 | PN ---
Teaching Attending Note Name of Resident: Marine Tavera ATTENDING PHYSICIAN STATEMENT I saw and evaluated the patient. I reviewed the resident's note and discussed the case with the resident. I agree with the resident's findings and plan as documented. SUBJECTIVE: Dr. Palma seen the patient and changed the dressing ordered L-spine before discharge. Ambulated with physical therapy 150feet. Patient feels well to go home. OBJECTIVE: Vital Signs Temperature 98.0 F 11/12/18 10:00 Pulse Rate 69 11/12/18 10:00 Respiratory Rate 18 11/12/18 10:00 Blood Pressure 128/66 11/12/18 10:00 O2 Sat by Pulse Oximetry (%) 92 L 11/11/18 21:00 GENERAL: The patient is awake, alert, and fully oriented, in no acute distress. HEAD: Normal with no signs of trauma. EYES: PERRL, extraocular movements intact, sclera anicteric, conjunctiva clear. ENT: Ears normal, oropharynx clear without exudates, moist mucous membranes. NECK: Trachea midline, full range of motion, supple. LUNGS: Breath sounds equal, clear to auscultation bilaterally, no wheezes, no crackles, no accessory muscle use. HEART: Regular rate and rhythm, S1, S2 without murmur, rub or gallop. ABDOMEN: Soft, NT, nondistended, normoactive bowel sounds, no guarding, no rebound, no hepatosplenomegaly, no masses. EXTREMITIES: 2+ pulses, warm, well-perfused, no edema. NEUROLOGICAL: CN 2-12 grossly intact, rest of exam per dr Palma PSYCH: Normal mood, normal affect. SKIN: Warm, dry, normal turgor, no rashes or lesions noted CBCD WBC 11.0 K/mm3 (4.0-10.0) H 11/12/18 07:00 RBC 4.47 M/mm3 (4.00-5.60) 11/12/18 07:00 Hgb 13.9 GM/dL (11.7-16.9) 11/12/18 07:00 Hct 40.9 % (35.4-49) 11/12/18 07:00 MCV 91.5 fl (80-96) 11/12/18 07:00 MCHC 33.9 g/dl (32.0-35.9) 11/12/18 07:00 RDW 14.4 % (11.9-15.9) 11/12/18 07:00 Plt Count 345 K/MM3 (134-434) D 11/12/18 07:00 MPV 7.3 fl (7.5-11.1) L 11/12/18 07:00 CMP Sodium 136 mmol/L (136-145) 11/12/18 06:00 Potassium 4.0 mmol/L (3.5-5.1) 11/12/18 06:00 Chloride 96 mmol/L (98-107) L 11/12/18 06:00 Carbon Dioxide 30 mmol/L (21-32) 11/12/18 06:00 Anion Gap 11 MMOL/L (8-16) 11/12/18 06:00 BUN 10.4 mg/dL (7-18) 11/12/18 06:00 Creatinine 0.9 mg/dL (0.55-1.3) 11/12/18 06:00 Random Glucose 82 mg/dL (74-106) 11/12/18 06:00 Calcium 9.1 mg/dL (8.5-10.1) 11/12/18 06:00 Total Bilirubin 0.9 mg/dL (0.2-1) 11/12/18 06:00 AST 104 U/L (15-37) H 11/12/18 06:00 ALT 172 U/L (13-61) H 11/12/18 06:00 Alkaline Phosphatase 105 U/L (45-117) 11/12/18 06:00 Total Protein 6.9 g/dl (6.4-8.2) 11/12/18 06:00 Albumin 3.1 g/dl (3.4-5.0) L 11/12/18 06:00 CARDIAC ENZYMES Creatine Kinase 613 U/L (26-308) H 11/10/18 07:28 Current Medications Generic Name Dose Route Start Last Admin Trade Name Hermila PRN Reason Stop Dose Admin Acetaminophen 1,000 mg 11/10/18 22:00 11/12/18 13:08 Tylenol - PO 1,000 mg TID PRANAY Administration Docusate Sodium 300 mg 11/11/18 22:00 11/11/18 22:01 Colace - PO 300 mg HS PRANAY Administration Labetalol HCl 100 mg 11/11/18 10:00 11/12/18 09:07 Normodyne - PO 100 mg BID PRANAY Administration Ondansetron HCl 4 mg 11/09/18 07:17 Zofran Injection IVPUSH Q6H PRN NAUSEA AND/OR VOMITING Oxycodone HCl 40 mg 11/09/18 10:00 11/12/18 09:06 Oxycontin - PO 40 mg BID PRANAY Administration Oxycodone HCl 10 mg 11/10/18 18:33 11/12/18 02:40 Roxicodone - PO 10 mg Q4H PRN Administration PAIN LEVEL 6-10 Polyethylene Glycol 17 gm 11/11/18 11:30 11/12/18 09:06 Miralax (For Daily Use) - PO 17 gm BID PRANAY Administration Home Medications Medication Instructions Recorded RX: Ibuprofen [Motrin -] 800 mg PO PRN PRN 11/02/18 RX: Multivitamin [One-Daily 1 each PO DAILY 11/02/18 Multi-Vitamin] Amlodipine Besylate [Norvasc -] 5 mg PO DAILY #30 tablet 11/12/18 Docusate Sodium [Colace -] 300 mg PO BID #14 capsule 11/12/18 RX: Lisinopril [Prinivil] 10 mg PO DAILY #30 tablet 11/12/18 Microbiology 11/08/18 08:50 Blood - Peripheral Venous Blood Culture - Preliminary NO GROWTH OBTAINED AFTER 96 HOURS, INCUBATION TO CONTINUE FOR 1 DAYS. 11/08/18 09:08 Blood - Peripheral Venous Blood Culture - Preliminary NO GROWTH OBTAINED AFTER 96 HOURS, INCUBATION TO CONTINUE FOR 1 DAYS. 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 # s/p stridor and edematous uvula: improved due to intubation # BELA: improved 2.2-->1.2-->0.8-->0.9 improved s/p IVF # H/o HTN: will discharge him home with norvasc and anny-I on discharge DVT px: SCDs for now, No AC as per ortho Patient has an appointment with the pain management in am
[2018-11-12 15:51] VITALS: BP 121/76; PULSE 76; TEMP 97.6
--- NOTE | 2018-11-12 18:10 | DS ---
Physical Exam: SUBJECTIVE: Patient seen and examined. Pt endorsed that his symptoms have improved.and pain is intermitten and at a minimal OBJECTIVE: Vital Signs Period Temp Pulse Resp BP Sys/Barrientos Pulse Ox Last 24 Hr 97.6 F-98.0 F 69-95 18-20 119-134/63-105 92 PHYSICAL EXAM GENERAL: The patient is awake, alert, and fully oriented, in no acute distress. HEAD: Normal with no signs of trauma. EYES: PERRL, extraocular movements intact, sclera anicteric, conjunctiva clear. ENT: moist mucous membranes. LUNGS: Breath sounds equal, clear to auscultation bilaterally, no wheezes, no crackles, no accessory muscle use. HEART: Regular rate and rhythm, S1, S2 without murmur, rub or gallop. ABDOMEN: Soft, nontender, nondistended, normoactive bowel sounds, no guarding, no rebound, no hepatosplenomegaly, no masses. EXTREMITIES: 2+ pulses, warm, well-perfused, no edema. NEUROLOGICAL: Cranial nerves II through XII grossly intact. Normal speech, gait intact. SKIN: Warm, dry, normal turgor, no rashes or lesions noted. LABS Laboratory Results - last 24 hr 11/12/18 11/12/18 11/12/18 06:00 07:00 07:00 WBC 11.0 H RBC 4.47 Hgb 13.9 Hct 40.9 MCV 91.5 MCH 31.0 MCHC 33.9 RDW 14.4 Plt Count 345 D MPV 7.3 L Absolute Neuts (auto) 7.0 Neutrophils % 63.5 Lymphocytes % 24.5 D Monocytes % 7.7 Eosinophils % 3.6 Basophils % 0.7 Nucleated RBC % 0 PT with INR 12.40 INR 1.05 Sodium 136 Potassium 4.0 Chloride 96 L Carbon Dioxide 30 Anion Gap 11 BUN 10.4 Creatinine 0.9 Est GFR (CKD-EPI)AfAm 111.83 Est GFR (CKD-EPI)NonAf 96.49 Random Glucose 82 Calcium 9.1 Phosphorus 4.2 Magnesium 2.3 Total Bilirubin 0.9 AST 104 H ALT 172 H Alkaline Phosphatase 105 Total Protein 6.9 Albumin 3.1 L Renal US 11/06/18Suspected bilateral nephrolithiasis, otherwise morphologically normal kidneys with no evidence of hydronephrosis or obstructive uropathy. CT scan 11/12/18 Status post op changes, as described above. Patient is now status post lesion of L3-S1 level in satisfactory alignment. Right transpedicular screw at L3 and left transpedicular screw at L4 are extending to and involving the corresponding superior endplate of the vertebral bodies. Correlate clinically. There is subcutaneous edema and the lower back at the site of surgery without gross evidence of a collection. Correlating due to determine further evaluation. 2 tiny nonobstructing right renal stones are present. HOSPITAL COURSE: Date of Admission:11/05/18 52 yo male with PMH of HTN s/p removal of hardware L4-L5, inspection of fusion mass, L3-S1 laminectomies, L3-L4& L4-L5 PLIF, L3-S1 posterior instrumented spinal fusion because of L4-L5 PLIF and sharp pain grading 6/10 radiating down the legs. 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 Pt had rhabdomyolysis that led to BELA which was responsive to IVFs. Renal US was performed and showed b/l non obstructive nephrolithiasis with symptoms and normal kidney morphology. Pt had endorsed parasthesias on lateral right thigh skin for which a CT scan was performed and showed no acute pathology. Pt has been ambulating with no issues and neuro symptoms have improved. Pt stable for discharged and to follow up with Dr Palma as outpatient in a week. Date of Discharge: 11/12/18 Minutes to complete discharge: 35 Discharge Summary Reason For Visit: FUSION OF SPINE, LUMBAR REGION Condition: Stable - Instructions Diet, Activity, Other Instructions: You came into the hospital for removal of hardware L4-L5, inspection of fusion mass, L3-S1 laminectomies, L3-L4& L4-L5 PLIF, L3-S1 posterior instrumented spinal fusion. Your symptoms have improved and you are stable enough to be discharged home. No bending, lifting (>5 lbs), or twisting for 9-12 months Medications: Please resume all of your home medications. We have made some changes to your medications: We have added norvasc 5mg by mouth daily for your hypertension We have added lisinopril 10 mg by mouth daily for your hypertension Incidental findings: 2 small kidney stones on your lumbar spine. keep drinking around 2 liter of water per day. Follow up: Please follow up with Dr. Palma [facility] [place] office; call for appointment ; . within one week If you begin to experience bleeding, shortness of breath, chest pain, difficulty breathing or swallowing, please return to the emergency room immediately. Referrals: Alfredo Palma MD [Staff Physician] - 1 Week Disposition: HOME - Home Medications Comprehensive Discharge Medication List: Ambulatory Orders Ibuprofen [Motrin -] 800 mg PO PRN PRN 11/02/18 Multivitamin [One-Daily Multi-Vitamin] 1 each PO DAILY 11/02/18 Amlodipine Besylate [Norvasc -] 5 mg PO DAILY #30 tablet 11/12/18 Docusate Sodium [Colace -] 300 mg PO BID #14 capsule 11/12/18 Lisinopril [Prinivil] 10 mg PO DAILY #30 tablet 11/12/18 Problem List - Problems (1) Radiculopathy due to disorder of intervertebral disc of lumbar spine Code(s): M51.16 - INTERVERTEBRAL DISC DISORDERS W RADICULOPATHY, LUMBAR REGION This patient is new to me today: No Emergency Visit: Yes ED Registration Date: 11/05/18 Care time: The patient presented to the Emergency Department on the above date and was hospitalized for further evaluation of their emergent condition. Critical Care patient: No - Discharge Referral Referred to [facility] No ATTENDING PHYSICIAN STATEMENT I saw and evaluated the patient. I reviewed the resident's note and discussed the case with the resident. I agree with the resident's findings and plan as documented. SUBJECTIVE: OBJECTIVE: ASSESSMENT AND PLAN:
== END 2018-11-12 16:45 | disposition home or self-care (01) | DRG 454 ==
LOC: JSAMEDAYSX 06:20 → JICU 19:06 → J8W 11-08 20:32
PROVIDERS: ADMIT Orthopaedic Surgery Adult Reconstructive Orthopaedic Surgery; ATTEND Internal Medicine
PROC: 0SG10AJ Fusion of 2 or more Lumbar Vertebral Joints with Interbody Fusion Device, Posterior Approach, Anterior Column, Open Approach (ICD-10-PCS; 2018-11-05)
PROC: 0SG1071 Fusion of 2 or more Lumbar Vertebral Joints with Autologous Tissue Substitute, Posterior Approach, Posterior Column, Open Approach (ICD-10-PCS; 2018-11-05)
PROC: 0ST20ZZ Resection of Lumbar Vertebral Disc, Open Approach (ICD-10-PCS; 2018-11-05)
PROC: 0SG30AJ Fusion of Lumbosacral Joint with Interbody Fusion Device, Posterior Approach, Anterior Column, Open Approach (ICD-10-PCS; 2018-11-05)
PROC: 0SG0071 Fusion of Lumbar Vertebral Joint with Autologous Tissue Substitute, Posterior Approach, Posterior Column, Open Approach (ICD-10-PCS; 2018-11-05)
PROC: 01NB0ZZ Release Lumbar Nerve, Open Approach (ICD-10-PCS; 2018-11-05)
PROC: 00QT0ZZ Repair Spinal Meninges, Open Approach (ICD-10-PCS; 2018-11-05)
PROC: 00UT0KZ Supplement Spinal Meninges with Nonautologous Tissue Substitute, Open Approach (ICD-10-PCS; 2018-11-05)
PROC: B01BZZZ Fluoroscopy of Spinal Cord (ICD-10-PCS; 2018-11-05)
PROC: 07DR0ZZ Extraction of Iliac Bone Marrow, Open Approach (ICD-10-PCS; 2018-11-05)
PROC: 4A11X4G Monitoring of Peripheral Nervous Electrical Activity, Intraoperative, External Approach (ICD-10-PCS; 2018-11-05)
PROC: 0SP00AZ Removal of Interbody Fusion Device from Lumbar Vertebral Joint, Open Approach (ICD-10-PCS; principal; 2018-11-05 08:00)
DX: M48.062 Spinal stenosis, lumbar region with neurogenic claudication (principal); G96.11 Dural tear; N17.9 Acute kidney failure, unspecified; M62.82 Rhabdomyolysis; J95.89 Other postprocedural complications and disorders of respiratory system, not elsewhere classified; M47.26 Other spondylosis with radiculopathy, lumbar region; M53.2X6 Spinal instabilities, lumbar region; G96.19 Other disorders of meninges, not elsewhere classified; M53.2X7 Spinal instabilities, lumbosacral region; M47.27 Other spondylosis with radiculopathy, lumbosacral region; I10 Essential (primary) hypertension; R06.1 Stridor; K13.79 Other lesions of oral mucosa; T78.3XXA Angioneurotic edema, initial encounter; Y83.8 Other surgical procedures as the cause of abnormal reaction of the patient, or of later complication, without mention of misadventure at the time of the procedure; T88.8XXA Other specified complications of surgical and medical care, not elsewhere classified, initial encounter; N20.0 Calculus of kidney; D72.829 Elevated white blood cell count, unspecified; R50.9 Fever, unspecified
CPT/HCPCS: 36415; 72131-TC; 76000-TC-FY; 76775-TC; 80048; 80053; 81003; 82550; 82553; 83735; 84100; 85025; 85027; 85610; 86850; 86891; 86900; 86901; 87040; 87086; 87205; 88300-TC; 88304-TC; 88311-TC; 94010; 94760; 97116-GP; 97161-GP; J0131; J1644